=== PATIENT | male | born 1945 | race Caucasian/White ===

== ENCOUNTER 2017-11-20 10:41 | Emergency (ER) | payer MEDICARE ==
--- NOTE | 2017-11-20 10:59 | ERPHSYRPT ---
- History of Present Illness Time Seen by Provider: 11/20/17 10:52 Historian: patient Exam Limitations: no limitations Patient Subjective Stated Complaint: pt states for the past 2 days he has had hiccups and right side chest pain. Triage Nursing Assessment: pt pink, warm, dry. radial pulses strong. lung sounds clear and equal. pt afebrile. pt has continuous hiccups. Physician History: 72-year-old white male arrives with complaint of left-sided chest pain (left upper chest) for 2 days. he describes this as a pressure states it is been sharp and pressure associated with shortness of breath no nausea no vomiting patient has had hiccups for 2 days as well. Past medical history includes Alzheimer's dementia, hypercholesterolemia, high blood pressure, hypothyroidism, degenerative disc disease, GERD, hernia, skin cancer, tremor, arthritis, bronchitis, diverticulitis patient apparently has had an aneurysm there is kidney Past surgical history includes feet and bone spur surgery, skin cancer excision , cholecystectomy, stent in the left leg Social history patient former smoker Timing/Duration: day(s) (2) Activities at Onset: none Quality: pressure, sharpness Location: other (left upper anterior chest) Chest Pain Radiation: no radiation Severity of Pain-Max: moderate Severity of Pain-Current: moderate Modifying Factors: Improves With: nothing Associated Symptoms: shortness of breath, other (hiccups for 2 days), No nausea , No vomiting, No palpitations, No heartburn, No abdominal pain, No cough, No hurts to breathe, No diaphoresis, No chills, No fever, No fatigue, No weakness, No swelling/lump in chest, No syncope, No rash, No headache, No dizziness, No edema, No back pain Prior Chest Pain/Cardiac Workup: no prior chest pain Nitro Today/Relief: no nitro taken today Aspirin Treatment Today: 81 mg x 1 (81 mg at home), 81 mg x 3 (provided by ER) Allergies/Adverse Reactions: No Known Drug Allergies Allergy (Verified 11/20/17 10:48) Home Medications: Lisinopril 20 mg PO DAILY 03/24/12 [History] Levothyroxine Sodium 75 Mcg [Synthroid 75 Mcg] 75 mcg PO DAILY 08/30/14 [ History] PANTOPRAZOLE 40 mg Tablet [Protonix 40MG Tablet] 40 mg PO DAILY 03/21/16 [ History] Clopidogrel Bisulfate 75 mg [PLAVIX 75 MG Tablet] 75 mg PO DAILY 12/17/16 [History] Amlodipine Besylate 10 mg [Norvasc 10 MG] 10 mg PO DAILY 11/20/17 [History] Aspirin 81 mg PO DAILY 11/20/17 [History] Cilostazol 75 mg PO BID 11/20/17 [History] Donepezil HCl [Aricept] 5 mg PO DAILY 11/20/17 [History] Memantine HCl [Namenda Xr] 28 mg PO DAILY 11/20/17 [History] Multivitamin [Multivitamins] 1 each PO DAILY 11/20/17 [History] Pravastatin Sodium 40 mg PO DAILY 11/20/17 [History] Propranolol HCl [Inderal LA] 80 mg PO DAILY 11/20/17 [History] Tamsulosin HCl 0.4 mg [Flomax 0.4 MG] 0.4 mg PO DAILY 11/20/17 [History] Hx Tetanus, Diphtheria Vaccination/Date Given: Yes (up to date) Hx Influenza Vaccination/Date Given: Yes Hx Pneumococcal Vaccination/Date Given: Yes Immunizations Up to Date: Yes - Review of Systems Constitutional: No Fever, No Chills Eyes: No Symptoms Ears, Nose, & Throat: No Symptoms Respiratory: Dyspnea, No Cough, No Cyanosis, No Dyspnea on Exertion (GUPTA), No Stridor, No Wheezing Cardiac: Chest Pain, No Edema, No Palpitations, No Syncope, No Orthopnea Abdominal/Gastrointestinal: Other (hiccups x 2 days), No Abdominal Pain, No Nausea, No Vomiting, No Diarrhea, No Constipation, No Hematemesis, No Hematochezia, No Melena, No Dysphagia, No Appetite Changes Genitourinary Symptoms: No Dysuria Musculoskeletal: No Back Pain, No Neck Pain Skin: No Rash Neurological: No Dizziness, No Focal Weakness, No Sensory Changes Psychological: No Symptoms Endocrine: No Symptoms All Other Systems: Reviewed and Negative - Past Medical History Pertinent Past Medical History: Yes Neurological History: Alzheimer's Disease, Dementia ENT History: No Pertinent History Cardiac History: High Cholesterol, Hypertension Respiratory History: No Pertinent History Endocrine Medical History: Hypothyroidism Musculoskeletal History: Degenerative Disk Disease GI Medical History: Diverticulitis, GERD, Hernia History: No Pertinent History Psycho-Social History: No Pertinent History Male Reproductive Disorders: No Pertinent History Other Medical History: skin cancer and tremor spouse states has a hiatel hernia and an aneurysm near kidney - Past Surgical History Past Surgical History: Yes Cardiac: No Pertinent History, Vascular Surgery Respiratory: No Pertinent History Gastrointestinal: Cholecystectomy, Other Genitourinary: No Pertinent History Musculoskeletal: Orthopedic Surgery Male Surgical History: No Pertinent History Other Surgical History: EGD february 2016 scheduled for jeffery april 02 2016. bilateral foot surgery for bone spurs - Social History Smoking Status: Former smoker Exposure to second hand smoke: No Drug Use: none Patient Lives Alone: No - Nursing Vital Signs Nursing Vital Signs: Initial Vital Signs Temperature 99.0 F 11/20/17 10:42 Pulse Rate 61 11/20/17 10:42 Respiratory Rate 20 11/20/17 10:42 Blood Pressure 130/71 11/20/17 10:42 O2 Sat by Pulse Oximetry 97 11/20/17 10:42 Pain Scale Pain Intensity 3 - Physical Exam General Appearance: mild distress, other (constantly hiccuping) Eye Exam: PERRL/EOMI, eyes nml inspection Ears, Nose, Throat Exam: normal ENT inspection, moist mucous membranes Neck Exam: normal inspection, non-tender, supple, full range of motion Respiratory Exam: normal breath sounds, lungs clear, No respiratory distress Cardiovascular Exam: regular rate/rhythm, normal heart sounds Gastrointestinal/Abdomen Exam: soft, No tenderness, No mass Back Exam: normal inspection, No CVA tenderness, No vertebral tenderness Extremity Exam: normal inspection, normal range of motion Neurologic Exam: alert, oriented x 3, cooperative, normal mood/affect, sensation nml, No motor deficits Skin Exam: normal color, warm, dry SpO2 Interpretation: normal (97%) SpO2: 97 Oxygen Delivery: Room Air - Course Nursing assessment & vital signs reviewed: Yes EKG Interpreted by Me: RATE (63 bpm), Sinus Rhythm, NORMAL AXIS, Other (EKG: Normal sinus rhythm, 63 beats for minute, normal axis, no acute ST or T wave changes as March 21, 2016) - Radiology Exams Chest X-ray Interpretation: Interpreted by me, Other (no acute disease process) Ordered Tests: Active Orders 24 hr Category Date Time Status Pig Machine Operator Helper STAT Care 11/20/17 10:52 Active EKG-ER Only STAT Care 11/20/17 10:52 Active IV Insertion STAT Care 11/20/17 10:52 Active CHEST 1 VIEW (PORTABLE) Stat Exams 11/20/17 10:52 Taken CBC W DIFF Stat Lab 11/20/17 10:50 Completed CMP Stat Lab 11/20/17 10:50 Results NT PRO BNP Stat Lab 11/20/17 10:50 Results TROPONIN Q3H Lab 11/20/17 10:50 Completed TROPONIN Q3H Lab 11/20/17 14:00 Ordered TROPONIN Q3H Lab 11/20/17 17:00 Ordered TROPONIN Q3H Lab 11/20/17 20:00 Ordered TROPONIN Q3H Lab 11/20/17 23:00 Ordered Medication Summary Generic Name Dose Route Start Last Admin Trade Name Freq PRN Reason Stop Dose Admin Chlorpromazine HCl 25 mg/ 101 mls @ 100 mls/hr 11/20/17 11:17 11/20/17 11:29 Sodium Chloride IV 11/20/17 12:17 100 mls/hr STAT ONE Administration Discontinued Medications Generic Name Dose Route Start Last Admin Trade Name Freq PRN Reason Stop Dose Admin Aspirin 243 mg 11/20/17 10:52 11/20/17 11:03 Baby Aspirin 81 Mg Chew PO 11/20/17 10:53 243 mg STAT ONE Administration Aspirin Confirm 11/20/17 11:00 Baby Aspirin 81 Mg Chew Administered 11/20/17 11:01 Dose 243 mg .ROUTE .STK-MED ONE Lab/Rad Data: Laboratory Result Diagrams 11/20/17 10:50 11/20/17 10:50 Laboratory Results 11/20/17 11/20/17 11/20/17 Range/Units 10:50 10:50 10:50 WBC 7.5 (4.0-10.5) K/mm3 RBC 4.33 (4.1-5.6) M/mm3 Hgb 13.2 (12.5-18.0) gm/dl Hct 40.2 L (42-50) % MCV 92.8 (78-100) fl MCH 30.5 (26-32) pg MCHC 32.8 (32-36) g/dl RDW 13.2 (11.5-14.0) % Plt Count 157 (150-450) K/mm3 MPV 10.5 H (6-9.5) fl Gran % 62.5 (36.0-66.0) % Lymphocytes % 14.1 L (24.0-44.0) % Monocytes % 20.0 H (0.0-12.0) % Eosinophils % 3.1 (0.00-5.0) % Basophils % 0.3 (0.0-0.4) % Basophils # 0.02 (0-0.4) Sodium 138 (136-145) mEq/L Potassium 4.4 (3.5-5.1) mEq/L Chloride 104 (98-107) mEq/L Carbon Dioxide 28.8 (21-32) mEq/L Anion Gap 9.9 (5-15) MEQ/L BUN Pending Creatinine 1.15 (0.55-1.30) mg/dl Estimated GFR > 60 ML/MIN Glucose 110 (70-110) MG/DL Calcium 9.1 (8.5-10.1) mg/dL Total Bilirubin 0.40 (0.2-1.0) mg/dL AST 21 (15-37) U/L ALT 21 (12-78) U/L Alkaline Phosphatase 64 (46-116) U/L Troponin I < 0.017 (0.000-0.056) ng/ml NT-Pro-B Natriuret Pep 148 H (0-125) pg/ml Serum Total Protein 7.2 (6.4-8.2) gm/dL Albumin 3.7 (3.4-5.0) g/dL - Progress Progress: improved Air Movement: fair Progress Note: 11/20/17 11:20 This is a 72-year-old white male with history of Alzheimer's dementia hypercholesterolemia high blood pressure hypothyroidism degenerative disc disease peripheral vascular disease He arrives with complaint of pain in the left upper anterior chest described as a pressure his states he was complaining of it being sharp and also some shortness of breath as well. Symptoms for 2 days He has also been having hiccups for 2 days On arrival patient has a frequent headache Which have been constant. Patient's EKG no acute changes as compared to March 21, 2016 sinus rhythm [address] or T wave changes Patient's vitals are stable. I've discussed with the pharmacist treatment for the patient's persistent hiccups. Will give Thorazine 25 mg IV piggyback this may be repeated if necessary. We have reviewed the patient's a potential interactions with his home medications. 11/20/17 12:02 Patient is feeling better nut picker a swelling and actually appear to be resolving. Patient's states that he did have some continuing pain earlier not pain at this time in his left upper anterior chest. Will discuss with physician fashion director party plan sales for Dr. Marc 11/20/17 12:[address] Hancock who is fashion director party plan sales for Dr. Marc discussed the case with her Will plan to call transfer center to [facility] Plan to transfer to [facility] for chest pain rule out. 11/20/17 12:12 I discussed the patient's case with Dr. Hines ER physician at [facility] he accepted patient for transfer. Will transfer patient. - Departure Time of Disposition: 12:12 Departure Disposition: Transfer ([facility]) Clinical Impression: Chest pain Qualifiers: Chest pain type: unspecified Qualified Code(s): R07.9 - Chest pain, unspecified Condition: Fair Critical Care Time: No Referrals: KARYN MARC MD [Primary Care Provider] -
[2017-11-20] MEDS ORDERED: BABY ASPIRIN 81 MG CHEW ONE (11:00)
[2017-11-20] MEDS: BABY ASPIRIN 81 MG CHEW PO ONE (11:03)
[2017-11-20 11:12] LABS: BASOPHIL % 0.3 % (0.0-0.4); Basophil (Absolute #) 0.02 (0-0.4); Eosinophil % 3.1 % (0.00-5.0); Eosinophil (Absolute #) 0.23 (0-0.5); Granulocyte Absolute (ANC) 4.67 (1.4-6.9); Granulocytes % 62.5 % (36.0-66.0); Hematocrit 40.2 % (42-50); Hemoglobin 13.2 gm/dl (12.5-18.0); Lymphocyte (Absolute #) 1.05 (1.0-4.6); Lymphocytes % 14.1 % (24.0-44.0); Mean Cell Volume 92.8 fl (78-100); Mean Corpuscular Hemoglobin 30.5 pg (26-32); Mean Corpuscular Hgb Concent. 32.8 g/dl (32-36); Mean Platelet Volume 10.5 fl (6-9.5); Monocyte (Absolute #) 1.49 (0.0-1.3); Platelet Count 157 K/mm3 (150-450); Red Blood Count 4.33 M/mm3 (4.1-5.6); Red Cell Distribution Width 13.2 % (11.5-14.0); White Blood Count 7.5 K/mm3 (4.0-10.5)
[2017-11-20] MEDS: THORAZINE IV ONE (11:29)
[2017-11-20] MEDS: SODIUM CHLORIDE 0.9% IV ONE (11:29)
[2017-11-20 11:41] LABS: ALBUMIN 3.7 g/dL (3.4-5.0); ALKALINE PHOSPHATASE 64 U/L (46-116); ANION GAP 9.9 MEQ/L (5-15); CHLORIDE 104 mEq/L (98-107); Calcium 9.1 mg/dL (8.5-10.1); Carbon Dioxide 28.8 mEq/L (21-32); Creatinine 1 1.15 mg/dl (0.55-1.30); EST GLOMERULAR FILTRATION RATE > 60 ML/MIN; Glucose 110 MG/DL (70-110); NT PRO BNP 148 pg/ml (0-125); Potassium 4.4 mEq/L (3.5-5.1); SGOT/AST 21 U/L (15-37); SGPT/ALT 21 U/L (12-78); SODIUM 138 mEq/L (136-145); Total Protein 7.2 gm/dL (6.4-8.2)
[2017-11-20 12:08] LABS: BLOOD UREA NITROGEN 8 mg/dL (9-20)
[2017-11-20 12:57] VITALS: BP 107/62; PULSE 78; O2SAT 98
--- NOTE | 2017-11-20 20:23 | XRAY ---
Indication: Chest pain. Comparison: December 17, 2016. AP chest less inflated today accentuating the cardiopulmonary structures. No focal infiltrate, consolidation, or large effusion. Heart is not enlarged. Bony thorax intact again with mild degenerative changes. Impression: Nonacute underinflated chest.
== END 2017-11-20 12:57 | disposition short-term general hospital (02) ==
LOC: ED 10:41
DX: R07.9 Chest pain, unspecified (principal); G30.9 Alzheimer's disease, unspecified; F02.80 Dementia in other diseases classified elsewhere, unspecified severity, without behavioral disturbance, psychotic disturbance, mood disturbance, and anxiety; I10 Essential (primary) hypertension; E03.9 Hypothyroidism, unspecified; K21.9 Gastro-esophageal reflux disease without esophagitis; Z85.828 Personal history of other malignant neoplasm of skin; E78.00 Pure hypercholesterolemia, unspecified; M19.90 Unspecified osteoarthritis, unspecified site; Z87.891 Personal history of nicotine dependence; Z79.899 Other long term (current) drug therapy
CPT/HCPCS: 36000; 36415; 71045; 80053; 83880; 84484; 85025; 93005; 93041; 96365; 99285; J3230; A9270-GY

== ENCOUNTER 2019-02-15 14:16 | Observation (INO) | payer MEDICARE ==
[2019-02-15] MEDS ORDERED: Sodium Chloride 0.9% 1000 ML 1,000 ML IV STA (14:58)
[2019-02-15] MEDS ORDERED: Sodium Chloride 0.9% 1000 ML 1,000 ML IV SCH (15:00)
[2019-02-15 15:01] LABS: BASOPHIL % 0.6 % (0.0-0.4); Basophil (Absolute #) 0.05 (0-0.4); Eosinophil % 8.2 % (0.00-5.0); Eosinophil (Absolute #) 0.66 (0-0.5); Granulocyte Absolute (ANC) 5.21 (1.4-6.9); Granulocytes % 64.6 % (36.0-66.0); Hematocrit 39.8 % (42-50); Lymphocyte (Absolute #) 1.27 (1.0-4.6); Lymphocytes % 15.8 % (24.0-44.0); Mean Cell Volume 90.2 fl (78-100); Mean Corpuscular Hemoglobin 29.5 pg (26-32); Mean Corpuscular Hgb Concent. 32.7 g/dl (32-36); Mean Platelet Volume 10.6 fl (6-9.5); Monocyte (Absolute #) 0.87 (0.0-1.3); Monocytes % 10.8 % (0.0-12.0); Platelet Count 198 K/mm3 (150-450); Red Blood Count 4.41 M/mm3 (4.1-5.6); Red Cell Distribution Width 15.7 % (11.5-14.0); White Blood Count 8.1 K/mm3 (4.0-10.5)
[2019-02-15 15:08] LABS: INR 1.16 (0.8-3.0); PROTIME 13.5 SECONDS (8.83-12.87)
[2019-02-15] MEDS ORDERED: Sodium Chloride 0.9% 1000 ML 1,000 ML ONE (15:20)
[2019-02-15 15:22] LABS: ALBUMIN 3.8 g/dL (3.5-5.0); ANION GAP 16.1 MEQ/L (5-15); BILIRUBIN,TOTAL 0.4 mg/dL (0.2-1.3); Calcium 9.5 mg/dL (8.4-10.2); Creatinine 1 1.28 mg/dL (0.66-1.25); Potassium 4.3 mmol/L (3.5-5.1); Total Protein 7.1 g/dL (6.3-8.2)
[2019-02-15 16:15] LABS: Appearance SLIGHTLY CLOUDY (CLEAR); Bacteria RARE /HPF (NEGATIVE); Bilirubin NEGATIVE (NEGATIVE); Blood NEGATIVE Ery/ul (0-5); Glucose NEGATIVE (NEGATIVE); Ketones TRACE (NEGATIVE); Leukocyte Esterase TRACE (NEGATIVE); Mucus SLIGHT /HPF (NEGATIVE); Nitrite NEGATIVE (NEGATIVE); Protein,Urine Dip 30 (Negative); RBC 0-2 /HPF (0-2); Urobilinogen 2 mg/dL (0-1)
--- NOTE | 2019-02-15 16:18 | XRAY ---
Indication: Dyspnea. Comparison: November 20, 2017. Portable apical lordotic chest remains slightly underinflated with right hemidiaphragm elevation. Remaining lungs clear. Heart is not enlarged with interval CABG surgery. Bony thorax intact again with mild degenerative changes. Impression: Nonacute chest with chronic features.
--- NOTE | 2019-02-15 17:06 | ERPHSYRPT ---
- History of Present Illness Time Seen by Provider: 02/15/19 14:45 Source: patient Exam Limitations: clinical condition Patient Subjective Stated Complaint: arrived per WC with concern of low B/P while doing his rehab. he is in phase 3. was not being heart monitored while exercising.. states became very hot and tired before he was able to finish his exercise plan today.. the staff ssaid he had a decreasingB/P . Triage Nursing Assessment: arrived from cardiac rehab with concern of low b/p while exercising. on arrive no c/o at this time.. denies CP or any c/o at this time.. did have a quadruple bypass in July by Dr Phelps. states his b/p was progressively low while in rehab. [place] hot while doing his rehab and tired. did not finish his exercises since feeling hot and tired. Physician History: PATIENT WITH A HISTORY OF HYPERTENSION, HYPOTHYROIDISM, CORONARY ARTERY DISEASE POST CORONARY ARTERY BYPASS 07/2018 WHILE DOING CARDIAC REHAB EXCERCISES WAS FOUND HYPOTENSIVE. PATIENT DENIES DIAPHORETIC, DYSPNEA, CHEST PAIN., SLURRED SPEECH, FOCAL NUMBNESS, TINGLING OR WEAKNESS IN EXTREMITIES. Timing/Duration: today Modifying Factors: Improves With: other (DENIES COMPLAINTS) Associated Symptoms: denies symptoms Allergies/Adverse Reactions: No Known Drug Allergies Allergy (Verified 02/15/19 14:51) Home Medications: Lisinopril 20 mg PO DAILY 03/24/12 [History] Levothyroxine Sodium 75 Mcg [Synthroid 75 Mcg] 75 mcg PO DAILY 08/30/14 [ History] Clopidogrel Bisulfate 75 mg [PLAVIX 75 MG Tablet] 75 mg PO DAILY 12/17/16 [History] Amlodipine Besylate 10 mg [Norvasc 10 MG] 10 mg PO DAILY 11/20/17 [History] Aspirin 81 mg PO DAILY 11/20/17 [History] Cilostazol 75 mg PO BID 11/20/17 [History] Donepezil HCl [Aricept] 10 mg PO BID 11/20/17 [History] Memantine HCl [Namenda Xr] 10 mg PO BID 11/20/17 [History] Multivitamin [Multivitamins] 1 each PO DAILY 11/20/17 [History] Pravastatin Sodium 40 mg PO DAILY 11/20/17 [History] Tamsulosin HCl 0.4 mg [Flomax 0.4 MG] 0.4 mg PO DAILY 11/20/17 [History] Hx Tetanus, Diphtheria Vaccination/Date Given: Yes (up to date) Hx Influenza Vaccination/Date Given: Yes Hx Pneumococcal Vaccination/Date Given: Yes Immunizations Up to Date: Yes - Review of Systems Constitutional: No Fever, No Chills Eyes: No Symptoms Ears, Nose, & Throat: No Symptoms, Throat Swelling Respiratory: No Cough, No Dyspnea Cardiac: No Symptoms, No Chest Pain, No Edema, No Syncope Abdominal/Gastrointestinal: No Symptoms, No Abdominal Pain, No Nausea, No Vomiting, No Diarrhea Genitourinary Symptoms: No Symptoms, No Dysuria Musculoskeletal: No Symptoms, No Back Pain, No Neck Pain Skin: No Symptoms, No Rash Neurological: No Dizziness, No Focal Weakness, No Sensory Changes Psychological: No Symptoms Endocrine: No Symptoms All Other Systems: Reviewed and Negative - Past Medical History Pertinent Past Medical History: Yes Neurological History: Alzheimer's Disease, Dementia ENT History: No Pertinent History Cardiac History: High Cholesterol, Hypertension Respiratory History: No Pertinent History Endocrine Medical History: Hypothyroidism Musculoskeletal History: Degenerative Disk Disease GI Medical History: Diverticulitis, GERD, Hernia History: No Pertinent History Psycho-Social History: No Pertinent History Male Reproductive Disorders: No Pertinent History Other Medical History: skin cancer and tremor spouse states has a hiatel hernia and an aneurysm near kidney. quadruple bypass in July - Past Surgical History Past Surgical History: Yes Cardiac: No Pertinent History, Vascular Surgery Respiratory: No Pertinent History Gastrointestinal: Cholecystectomy, Other Genitourinary: No Pertinent History Musculoskeletal: Orthopedic Surgery Male Surgical History: No Pertinent History Other Surgical History: EGD february 2016 scheduled for jeffery april 02 2016. bilateral foot surgery for bone spurs. quadruple bypass in July 2018 - Social History Smoking Status: Never smoker Exposure to second hand smoke: No Drug Use: none Patient Lives Alone: No - Nursing Vital Signs Nursing Vital Signs: Initial Vital Signs Temperature 97.8 F 02/15/19 14:30 Pulse Rate 60 02/15/19 14:30 Blood Pressure 101/52 02/15/19 14:30 O2 Sat by Pulse Oximetry 95 02/15/19 14:30 Pain Scale Pain Intensity 0 - Physical Exam General Appearance: no apparent distress, alert Eye Exam: PERRL/EOMI, eyes nml inspection Ears, Nose, Throat Exam: normal ENT inspection, TMs normal, pharynx normal, moist mucous membranes Neck Exam: normal inspection, non-tender, supple, full range of motion Respiratory Exam: normal breath sounds, lungs clear, No respiratory distress Cardiovascular Exam: regular rate/rhythm, normal heart sounds, normal peripheral pulses Gastrointestinal/Abdomen Exam: soft, normal bowel sounds, No tenderness, No mass Back Exam: normal inspection, normal range of motion, No CVA tenderness, No vertebral tenderness Extremity Exam: normal inspection, normal range of motion, pelvis stable Neurologic Exam: alert, oriented x 3, cooperative, normal mood/affect, nml cerebellar function, nml station & gait, sensation nml, No motor deficits Skin Exam: normal color, warm, dry, No rash Lymphatic Exam: No adenopathy SpO2 Interpretation: normal SpO2: 97 - Course EKG Interpreted by Me: RATE, Sinus Rhythm, NORMAL AXIS - Radiology Exams Chest X-ray Interpretation: Interpreted by me, Negative, No Infiltrates Ordered Tests: Active Orders 24 hr Category Date Time Status Small Engine Trainer STAT Care 02/15/19 14:53 Active EKG-ER Only STAT Care 02/15/19 14:53 Active IV Insertion STAT Care 02/15/19 14:53 Active Orthostatic Vital Signs STAT Care 02/15/19 15:00 Active CHEST 1 VIEW (PORTABLE) Stat Exams 02/15/19 15:25 Completed CBC W DIFF Stat Lab 02/15/19 14:45 Completed CMP Stat Lab 02/15/19 14:45 Completed CULTURE,URINE Stat Lab 02/15/19 16:10 Received MAGNESIUM Stat Lab 02/15/19 14:45 Completed NT PRO BNP Stat Lab 02/15/19 14:45 Completed PROTIME WITH INR Stat Lab 02/15/19 14:45 Completed TROPONIN Q3H Lab 02/15/19 14:45 Completed TROPONIN Q3H Lab 02/15/19 18:00 Ordered TROPONIN Q3H Lab 02/15/19 21:00 Ordered TROPONIN Q3H Lab 02/16/19 00:00 Ordered TROPONIN Q3H Lab 02/16/19 03:00 Ordered UA W/RFX UR CULTURE Stat Lab 02/15/19 16:10 Completed Medication Summary Discontinued Medications Generic Name Dose Route Start Last Admin Trade Name Freq PRN Reason Stop Dose Admin Sodium Chloride 1,000 mls @ 200 mls/hr 02/15/19 15:00 Sodium Chloride 0.9% 1000 Ml IV 03/17/19 14:59 .Q5H ALICIA Sodium Chloride 1,000 mls @ 500 mls/hr 02/15/19 14:58 02/15/19 15:24 Sodium Chloride 0.9% 1000 Ml IV 02/15/19 16:57 500 mls/hr .Q2H STA Administration Sodium Chloride Confirm 02/15/19 15:20 Sodium Chloride 0.9% 1000 Ml Administered 02/15/19 15:21 Dose 1,000 mls @ ud .ROUTE .K-MED ONE Lab/Rad Data: Laboratory Result Diagrams 02/15/19 14:45 02/15/19 14:45 Laboratory Results 02/15/19 02/15/19 02/15/19 Range/Units 16:10 14:45 14:45 WBC (4.0-10.5) K/mm3 RBC (4.1-5.6) M/mm3 Hgb (12.5-18.0) gm/dl Hct (42-50) % MCV (78-100) fl MCH (26-32) pg MCHC (32-36) g/dl RDW (11.5-14.0) % Plt Count (150-450) K/mm3 MPV (6-9.5) fl Gran % (36.0-66.0) % Eos # (Auto) (0-0.5) Absolute Lymphs (auto) (1.0-4.6) Absolute Monos (auto) (0.0-1.3) Lymphocytes % (24.0-44.0) % Monocytes % (0.0-12.0) % Eosinophils % (0.00-5.0) % Basophils % (0.0-0.4) % Absolute Granulocytes (1.4-6.9) Basophils # (0-0.4) PT (8.83-12.87) SECONDS INR (0.8-3.0) Sodium (137-145) mmol/L Potassium (3.5-5.1) mmol/L Chloride (98-107) mmol/L Carbon Dioxide (22-30) mmol/L Anion Gap (5-15) MEQ/L BUN (9-20) mg/dL Creatinine (0.66-1.25) mg/dL Estimated GFR ML/MIN Glucose (74-106) mg/dL Calcium (8.4-10.2) mg/dL Magnesium 2.1 (1.6-2.3) mg/dL Total Bilirubin (0.2-1.3) mg/dL AST (17-59) U/L ALT (0-50) U/L Alkaline Phosphatase (38-126) U/L Troponin I < 0.012 (0.000-0.034) ng/mL NT-Pro-B Natriuret Pep (0-1800) pg/mL Serum Total Protein (6.3-8.2) g/dL Albumin (3.5-5.0) g/dL Urine Color DRAKE (YELLOW) Urine Appearance SLIGHTLY CLOUDY (CLEAR) Urine pH 5.0 (5-6) Ur Specific [address] 1.020 (1.005-1.025) Urine Protein 30 (Negative) Urine Ketones TRACE (NEGATIVE) Urine Blood NEGATIVE (0-5) Michael/ul Urine Nitrite NEGATIVE (NEGATIVE) Urine Bilirubin NEGATIVE (NEGATIVE) Urine Urobilinogen 2 (0-1) mg/dL Ur Leukocyte Esterase TRACE (NEGATIVE) Urine WBC (Auto) 6-10 (0-5) /HPF Urine RBC (Auto) 0-2 (0-2) /HPF U Hyaline Cast (Auto) 6-10 (0-2) /LPF U Epithel Cells (Auto) NONE (FEW) /HPF Urine Bacteria (Auto) RARE (NEGATIVE) /HPF Urine Mucus (Auto) SLIGHT (NEGATIVE) /HPF Urine Culture Reflexed YES (NO) Urine Glucose NEGATIVE (NEGATIVE) mg/dL 02/15/19 02/15/19 02/15/19 Range/Units 14:45 14:45 14:45 WBC 8.1 (4.0-10.5) K/mm3 RBC 4.41 (4.1-5.6) M/mm3 Hgb 13.0 (12.5-18.0) gm/dl Hct 39.8 L (42-50) % MCV 90.2 (78-100) fl MCH 29.5 (26-32) pg MCHC 32.7 (32-36) g/dl RDW 15.7 H (11.5-14.0) % Plt Count 198 (150-450) K/mm3 MPV 10.6 H (6-9.5) fl Gran % 64.6 (36.0-66.0) % Eos # (Auto) 0.66 H (0-0.5) Absolute Lymphs (auto) 1.27 (1.0-4.6) Absolute Monos (auto) 0.87 (0.0-1.3) Lymphocytes % 15.8 L (24.0-44.0) % Monocytes % 10.8 (0.0-12.0) % Eosinophils % 8.2 H (0.00-5.0) % Basophils % 0.6 (0.0-0.4) % Absolute Granulocytes 5.21 (1.4-6.9) Basophils # 0.05 (0-0.4) PT 13.5 H (8.83-12.87) SECONDS INR 1.16 (0.8-3.0) Sodium 141 (137-145) mmol/L Potassium 4.3 (3.5-5.1) mmol/L Chloride 105 (98-107) mmol/L Carbon Dioxide 23 (22-30) mmol/L Anion Gap 16.1 H (5-15) MEQ/L BUN 14 (9-20) mg/dL Creatinine 1.28 H (0.66-1.25) mg/dL Estimated GFR 58.2 ML/MIN Glucose 94 (74-106) mg/dL Calcium 9.5 (8.4-10.2) mg/dL Magnesium (1.6-2.3) mg/dL Total Bilirubin 0.40 (0.2-1.3) mg/dL AST 24 (17-59) U/L ALT 20 (0-50) U/L Alkaline Phosphatase 90 (38-126) U/L Troponin I (0.000-0.034) ng/mL NT-Pro-B Natriuret Pep 340 (0-1800) pg/mL Serum Total Protein 7.1 (6.3-8.2) g/dL Albumin 3.8 (3.5-5.0) g/dL Urine Color (YELLOW) Urine Appearance (CLEAR) Urine pH (5-6) Ur Specific [address] (1.005-1.025) Urine Protein (Negative) Urine Ketones (NEGATIVE) Urine Blood (0-5) Michael/ul Urine Nitrite (NEGATIVE) Urine Bilirubin (NEGATIVE) Urine Urobilinogen (0-1) mg/dL Ur Leukocyte Esterase (NEGATIVE) Urine WBC (Auto) (0-5) /HPF Urine RBC (Auto) (0-2) /HPF U Hyaline Cast (Auto) (0-2) /LPF U Epithel Cells (Auto) (FEW) /HPF Urine Bacteria (Auto) (NEGATIVE) /HPF Urine Mucus (Auto) (NEGATIVE) /HPF Urine Culture Reflexed (NO) Urine Glucose (NEGATIVE) mg/dL - Progress Progress Note: 02/15/19 17:08 IV NORMAL SALINE 200ML/HR Discussed with : Maynor (DISCUSSED WITH DR MARC AT 1645 FOR OBSERVATION) - Departure Departure Disposition: Observation Clinical Impression: HYPOTENSION Condition: Stable Critical Care Time: No Referrals: KARYN MARC MD [Primary Care Provider] -
[2019-02-15] MEDS ORDERED: TYLENOL 325 MG PO PRN (17:10)
[2019-02-15] MEDS ORDERED: Zofran 4 MG/2 ML VIAL IV PRN (17:10)
[2019-02-15] MEDS: Sodium Chloride 0.9% 1000 ML 1,000 ML IV SCH (18:50)
[2019-02-15] MEDS ORDERED: Toprol-Xl 25MG Tablets PO SCH (22:00)
[2019-02-15] MEDS: Namenda 5 MG PO SCH (22:17)
[2019-02-15] MEDS: Aricept 10 MG PO SCH (22:17)
[2019-02-16] MEDS ORDERED: Nitrostat 0.4 MG (ED) SL PRN (07:30)
[2019-02-16] MEDS ORDERED: CILOSTAZOL PO SCH (10:00)
[2019-02-16] MEDS ORDERED: NORVASC 5 MG PO SCH (10:00)
[2019-02-16] MEDS ORDERED: Protonix 40MG Tablet PO SCH (10:00)
[2019-02-16] MEDS ORDERED: Toprol Xl 50 MG PO SCH ×2 (10:00)
[2019-02-16] MEDS ORDERED: Zestril 10 MG PO SCH (10:00)
[2019-02-16] MEDS ORDERED: Flomax 0.4 MG PO SCH ×2 (10:00→22:00)
[2019-02-16] MEDS ORDERED: Lopressor 25MG Tab PO SCH (10:00)
[2019-02-16] MEDS: Zestril 20 MG PO SCH (10:56)
[2019-02-16] MEDS: Aricept 10 MG PO SCH ×2 (10:58→21:44)
[2019-02-16] MEDS: Colace 100 MG PO SCH ×2 (10:58→21:44)
[2019-02-16] MEDS: SYNTHROID 75 MCG PO SCH (10:59)
[2019-02-16] MEDS: Namenda 5 MG PO SCH ×2 (11:00→21:45)
[2019-02-16] MEDS: ECOTRIN 81 MG PO SCH (11:00)
[2019-02-16] MEDS: PLAVIX 75 MG Tablet PO SCH (11:00)
[2019-02-16] MEDS: Pletal 100 MG PO SCH ×2 (16:28→22:03)
[2019-02-16] MEDS: Sodium Chloride 0.9% 1000 ML 1,000 ML IV SCH (16:50)
--- NOTE | 2019-02-16 17:10 | PCM.HP ---
History of Present Illness - Chief Complaint Chief Complaint: dizziness and low blood pressure History of Present Illness: is a 73 year old male came to ER with blood pressure. - Review of Systems Constitutional: No Fever, No Chills Eyes: No Symptoms Ears, Nose, & Throat: No Symptoms Respiratory: No Cough, No Short Of Breath Cardiac: No Chest Pain, No Edema, No Syncope Abdominal/Gastrointestinal: No Abdominal Pain, No Nausea, No Vomiting, No Diarrhea Genitourinary Symptoms: No Dysuria Musculoskeletal: No Back Pain, No Neck Pain Skin: No Rash Neurological: No Dizziness, No Focal Weakness, No Sensory Changes Psychological: No Symptoms Endocrine: No Symptoms Hematologic/Lymphatic: No Symptoms Immunological/Allergic: No Symptoms Medications & Allergies Home Medications: Home Medication List Lisinopril 20 mg PO DAILY 03/24/12 [History Confirmed 02/15/19] Levothyroxine Sodium 75 Mcg [Synthroid 75 Mcg] 75 mcg PO DAILY 08/30/14 [ History Confirmed 02/15/19] Clopidogrel Bisulfate 75 mg [PLAVIX 75 MG Tablet] 75 mg PO HS 12/17/16 [ History Confirmed 02/15/19] Amlodipine Besylate 10 mg [Norvasc 10 MG] 10 mg PO DAILY 11/20/17 [History Confirmed 02/15/19] Aspirin 81 mg PO DAILY 11/20/17 [History Confirmed 02/15/19] Cilostazol 75 mg PO BID 11/20/17 [History Confirmed 02/15/19] Donepezil HCl [Aricept] 10 mg PO BID 11/20/17 [History Confirmed 02/15/19] Multivitamin [Multivitamins] 1 each PO HS 11/20/17 [History Confirmed 02/15/19] Pravastatin Sodium 40 mg PO HS 11/20/17 [History Confirmed 02/15/19] Tamsulosin HCl 0.4 mg [Flomax 0.4 MG] 0.4 mg PO HS 11/20/17 [History Confirmed 02/16/19] Docusate Sodium 100 mg [Colace 100 MG] 100 mg PO BID 02/15/19 [History Confirmed 02/15/19] Memantine HCl [Namenda] 10 mg PO BID 02/15/19 [History Confirmed 02/15/19] Nitroglycerin 0.4 mg (Ed) [Nitrostat 0.4 MG (ED)] 0.4 mg SL UD 02/15/19 [ History Confirmed 02/15/19] Quetiapine Fumarate [Seroquel] 25 mg PO HS 02/15/19 [History Confirmed 02/15/19] Metoprolol Tartrate 50 mg [Lopressor 50 MG] 50 mg PO BID 02/16/19 [ History Confirmed 02/16/19] Allergies/Adverse Reactions: Allergies Allergy/AdvReac Type Severity Reaction Status Date / Time No Known Drug Allergies Allergy Verified 02/15/19 14:51 - Past Medical History Past Medical History: Yes Neurological History: Alzheimer's Disease, Dementia ENT History: No Pertinent History Cardiac History: High Cholesterol, Hypertension Respiratory History: No Pertinent History Endocrine Medical History: Hypothyroidism Musculoskelatal History: Degenerative Disk Disease GI Medical History: Diverticulitis, GERD, Hernia History: No Pertinent History Pyscho-Social History: No Pertinent History Male Reproductive Disorders: No Pertinent History Comment: skin cancer and tremor spouse states has a hiatel hernia and 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 bilateral foot surgery for bone spurs. quadruple bypass in July 2018 - Social History Smoking Status: Former smoker Exposure to second hand smoke: No Alcohol: None Drug Use: none - Physical Exam Vital Signs: Vital Signs - 24 hr Temp Pulse Resp BP Pulse Ox 02/16/19 16:00 97.9 F 55 L 26 H 133/63 97 02/16/19 12:00 97.7 F 58 L 20 133/96 97 02/16/19 07:19 97.7 F 72 14 141/68 95 02/16/19 06:48 98 02/16/19 03:48 97.7 F 59 L 16 141/69 95 02/16/19 00:00 98.0 F 65 17 124/66 95 02/15/19 20:00 97.4 F 60 18 135/64 96 02/15/19 18:20 98.1 F 52 L 18 127/59 96 02/15/19 17:33 98.1 F 52 L 18 127/59 96 02/15/19 17:09 97 General Appearance: no apparent distress, alert Neurologic Exam: alert, oriented x 3, cooperative, normal mood/affect, nml cerebellar function, nml station & gait, sensation nml, No motor deficits Eye Exam: PERRL/EOMI, eyes nml inspection Ears, Nose, Throat Exam: normal ENT inspection, TMs normal, pharynx normal, moist mucous membranes Neck Exam: normal inspection, non-tender, supple, full range of motion Respiratory Exam: normal breath sounds, lungs clear, No respiratory distress Cardiovascular Exam: regular rate/rhythm, normal heart sounds, normal peripheral pulses Gastrointestinal/Abdomen Exam: soft, normal bowel sounds, No tenderness, No mass Back Exam: normal inspection, normal range of motion, No CVA tenderness, No vertebral tenderness Extremity Exam: normal inspection, normal range of motion, pelvis stable Skin Exam: normal color, warm, dry, No rash Lymphatic Exam: No adenopathy Results - Labs Lab/Micro Results: Lab Results-Last 24 Hours 02/15/19 02/15/19 02/16/19 Range/Units 18:23 21:18 00:12 Troponin I < 0.012 < 0.012 < 0.012 (0.000-0.034) ng/mL 02/16/19 Range/Units 03:23 Troponin I < 0.012 (0.000-0.034) ng/mL Microbiology 02/15/19 16:10 Urine Culture - Preliminary Urine, Void NO GROWTH TO DATE - Radiology Impressions Radiology Exams & Impressions: Radiology Procedures Category Date Time Status CHEST 1 VIEW (PORTABLE) Stat Exams 02/15/19 15:25 Completed Assessment/Plan (1) Bradyarrhythmia Current Visit: Yes Status: Acute Assessment & Plan: Laboratory Results - last 24 hr 02/15/19 02/15/19 02/16/19 18:23 21:18 00:12 Troponin I < 0.012 < 0.012 < 0.012 02/16/19 03:23 Troponin I < 0.012 Last Vital Signs Temp 97.9 F 02/16/19 16:00 Pulse 55 L 02/16/19 16:00 Resp 26 H 02/16/19 16:00 BP 133/63 02/16/19 16:00 Pulse Ox 97 02/16/19 16:00 Allergies No Known Drug Allergies Allergy (Verified 02/15/19 14:51) Active Medications Acetaminophen (Tylenol 325 Mg) 650 mg PO Q4H PRN PRN PRN Reason: PAIN AND/OR FEVER Stop: 03/17/19 17:09 Amlodipine Besylate (Norvasc 5 Mg) 10 mg PO QAM [facility] Stop: 03/18/19 09:59 Last Admin: 02/16/19 10:59 Dose: 10 mg Aspirin (Ecotrin 81 Mg) 81 mg PO DAILY [facility] Stop: 03/18/19 09:59 Last Admin: 02/16/19 11:00 Dose: 81 mg Carvedilol (Coreg 3.125 Mg) 3.125 mg PO DAILY [facility] Stop: 03/19/19 09:59 Cilostazol (Pletal 100 Mg) 75 mg PO BIDAC [facility] Stop: 03/18/19 16:29 Last Admin: 02/16/19 16:28 Dose: Not Given Clopidogrel Bisulfate (Plavix 75 Mg Tablet) 75 mg PO DAILY [facility] Stop: 03/18/19 09:59 Last Admin: 02/16/19 11:00 Dose: 75 mg Docusate Sodium (Colace 100 Mg) 100 mg PO BID [facility] Stop: 03/18/19 09:59 Last Admin: 02/16/19 10:58 Dose: 100 mg Donepezil HCl (Aricept 10 Mg) 10 mg PO BID [facility] Stop: 03/17/19 21:59 Last Admin: 02/16/19 10:58 Dose: 10 mg Levothyroxine Sodium (Synthroid 75 Mcg) 75 mcg PO QAM [facility] Stop: 03/18/19 09:59 Last Admin: 02/16/19 10:59 Dose: 75 mcg Lisinopril (Zestril 20 Mg) 20 mg PO DAILY [facility] Stop: 03/18/19 09:59 Last Admin: 02/16/19 10:56 Dose: 20 mg Memantine (Namenda 5 Mg) 10 mg PO BID [facility] Stop: 03/17/19 21:59 Last Admin: 02/16/19 11:00 Dose: 10 mg Multivitamins Therapeutic (Theragran Multivitamin) 1 tab PO HS [facility] Stop: 03/18/19 21:59 Nitroglycerin (Nitrostat 0.4 Mg (Ed)) 0.4 mg SL UD PRN Stop: 03/18/19 07:29 Ondansetron HCl (Zofran 4 Mg/2 Ml Vial) 4 mg IV Q6H PRN PRN PRN Reason: NAUSEA/VOMITING Stop: 03/17/19 17:09 Quetiapine Fumarate (Seroquel 25 Mg) 25 mg PO HS [facility] Stop: 03/18/19 21:59 Simvastatin (Zocor 20mg) 40 mg PO [facility] Stop: 03/18/19 21:59 Tamsulosin HCl (Flomax 0.4 Mg) 0.4 mg PO [facility] Stop: 03/18/19 21:59 Intake & Output 02/16/19 02/17/19 11:59 11:59 Intake Total 1592 1200 Output Total 100 400 Balance 1492 800 Weight 81.647 kg Orders 02/16/19 06:48 Pulse Oximetry .continuos 02/16/19 07:30 Nitroglycerin 0.4 mg (Ed) [Nitrostat 0.4 MG (ED)] 0.4 mg UD PRN 02/16/19 10:00 Docusate Sodium 100 mg [Colace 100 MG] 100 mg PO BID 02/16/19 16:30 Cilostazol 100 mg [Pletal 100 MG] 75 mg PO BIDAC 02/16/19 22:00 Multivitamins,Therapeutic Tab* [Theragran Multivitamin] 1 tab PO HS Quetiapine Fumarate 25 mg [Seroquel 25 MG] 25 mg PO HS Simvastatin 20Mg [Zocor 20Mg] 40 mg PO HS Tamsulosin HCl 0.4 mg [Flomax 0.4 MG] 0.4 mg PO HS 02/17/19 10:00 Carvedilol 3.125 mg [Coreg 3.125 MG] 3.125 mg PO DAILY Lab Tests 02/15/19 02/15/19 02/16/19 18:23 21:18 00:12 Troponin I < 0.012 < 0.012 < 0.012 02/16/19 03:23 Troponin I < 0.012 Microbiology 02/15/19 16:10 Urine, Void Urine Culture - Preliminary NO GROWTH TO DATE Code(s): I49.8 - OTHER SPECIFIED CARDIAC ARRHYTHMIAS (2) HTN (hypertension) Current Visit: Yes Status: Acute Qualifiers: Hypertension type: essential hypertension Qualified Code(s): I10 - Essential (primary) hypertension Code(s): I10 - ESSENTIAL (PRIMARY) HYPERTENSION (3) CAD (coronary artery disease) Current Visit: Yes Status: Acute Qualifiers: Coronary Disease-Associated Artery/Lesion type: [place] artery [place] vs. transplanted heart: [place] heart Associated angina: without angina Qualified Code(s): I25.10 - Atherosclerotic heart disease of [place] coronary artery without angina pectoris Code(s): I25.10 - ATHSCL HEART DISEASE OF [place] CORONARY ARTERY W/O ANG PCTRS
[2019-02-16] MEDS ORDERED: NON-FORMULARY ITEM (Pravastatin Sodium [Pravastatin Sodium] 40 MG) PO SCH (22:00)
[2019-02-16] MEDS ORDERED: THERAGRAN MULTIVITAMIN PO SCH (22:00)
[2019-02-16] MEDS ORDERED: Seroquel 25 MG PO SCH (22:00)
[2019-02-16] MEDS ORDERED: NON-FORMULARY ITEM (Multivitamin [Multivitamins] 1 EACH) PO SCH (22:00)
[2019-02-16] MEDS ORDERED: ZOCOR 20MG PO SCH (22:00)
[2019-02-17] MEDS: Pletal 100 MG PO SCH (08:05)
[2019-02-17] MEDS: SYNTHROID 75 MCG PO SCH (09:15)
[2019-02-17] MEDS: Aricept 10 MG PO SCH (09:15)
[2019-02-17] MEDS: Zestril 20 MG PO SCH (09:15)
[2019-02-17] MEDS: PLAVIX 75 MG Tablet PO SCH (09:16)
[2019-02-17] MEDS: Namenda 5 MG PO SCH (09:16)
[2019-02-17] MEDS: ECOTRIN 81 MG PO SCH (09:16)
[2019-02-17] MEDS: Colace 100 MG PO SCH (09:17)
[2019-02-17] MEDS ORDERED: Coreg 3.125 MG PO SCH (10:00)
[2019-02-17 11:45] VITALS: BP 111/70; PULSE 73; O2SAT 97
[2019-02-17] MEDS ORDERED: Nitrostat 0.4 MG Tablet SL PRN (12:44)
--- NOTE | 2019-02-17 13:04 | PCM.DS ---
Discharge Summary Date of Admission: 02/15/19 17:32 Admitting Physician: KARYN MARC Primary Care Provider: KARYN MARC Allergies Allergies No Known Drug Allergies Allergy (Verified 02/15/19 14:51) Hospital Summary - Hospital Course Hospital Course: Last Vital Signs Temp 98.4 F 02/17/19 11:44 Pulse 73 02/17/19 11:44 Resp 12 02/17/19 11:44 BP 111/70 02/17/19 11:44 Pulse Ox 97 02/17/19 11:44 Allergies No Known Drug Allergies Allergy (Verified 02/15/19 14:51) Active Medications Acetaminophen (Tylenol 325 Mg) 650 mg PO Q4H PRN PRN PRN Reason: PAIN AND/OR FEVER Stop: 03/17/19 17:09 Amlodipine Besylate (Norvasc 5 Mg) 10 mg PO HS [facility] Stop: 03/19/19 21:59 Aspirin (Ecotrin 81 Mg) 81 mg PO DAILY [facility] Stop: 03/18/19 09:59 Last Admin: 02/17/19 09:16 Dose: 81 mg Carvedilol (Coreg 3.125 Mg) 3.125 mg PO DAILY [facility] Stop: 03/19/19 09:59 Last Admin: 02/17/19 09:16 Dose: 3.125 mg Cilostazol (Pletal 100 Mg) 75 mg PO BIDAC [facility] Stop: 03/18/19 16:29 Last Admin: 02/17/19 08:05 Dose: 75 mg Clopidogrel Bisulfate (Plavix 75 Mg Tablet) 75 mg PO DAILY [facility] Stop: 03/18/19 09:59 Last Admin: 02/17/19 09:16 Dose: 75 mg Docusate Sodium (Colace 100 Mg) 100 mg PO BID [facility] Stop: 03/18/19 09:59 Last Admin: 02/17/19 09:17 Dose: 100 mg Donepezil HCl (Aricept 10 Mg) 10 mg PO BID [facility] Stop: 03/17/19 21:59 Last Admin: 02/17/19 09:15 Dose: 10 mg Levothyroxine Sodium (Synthroid 75 Mcg) 75 mcg PO QAM [facility] Stop: 03/18/19 09:59 Last Admin: 02/17/19 09:15 Dose: 75 mcg Lisinopril (Zestril 20 Mg) 20 mg PO DAILY [facility] Stop: 03/18/19 09:59 Last Admin: 02/17/19 09:15 Dose: 20 mg Memantine (Namenda 5 Mg) 10 mg PO BID [facility] Stop: 03/17/19 21:59 Last Admin: 02/17/19 09:16 Dose: 10 mg Multivitamins Therapeutic (Theragran Multivitamin) 1 tab PO HS [facility] Stop: 03/18/19 21:59 Last Admin: 02/16/19 21:45 Dose: 1 tab Nitroglycerin (Nitrostat 0.4 Mg Tablet) 0.4 mg SL UD PRN Stop: 03/19/19 12:43 Ondansetron HCl (Zofran 4 Mg/2 Ml Vial) 4 mg IV Q6H PRN PRN PRN Reason: NAUSEA/VOMITING Stop: 03/17/19 17:09 Quetiapine Fumarate (Seroquel 25 Mg) 25 mg PO HS [facility] Stop: 03/18/19 21:59 Last Admin: 02/16/19 21:44 Dose: 25 mg Simvastatin (Zocor 20mg) 40 mg PO HS [facility] Stop: 03/18/19 21:59 Last Admin: 02/16/19 21:43 Dose: 40 mg Tamsulosin HCl (Flomax 0.4 Mg) 0.4 mg PO HS [facility] Stop: 03/18/19 21:59 Last Admin: 02/16/19 21:44 Dose: 0.4 mg Intake & Output 02/17/19 02/18/19 11:59 11:59 Intake Total 2260 Output Total 800 Balance 1460 Orders 02/16/19 16:30 Cilostazol 100 mg [Pletal 100 MG] 75 mg PO BIDAC 02/16/19 22:00 Multivitamins,Therapeutic Tab* [Theragran Multivitamin] 1 tab PO HS Quetiapine Fumarate 25 mg [Seroquel 25 MG] 25 mg PO HS Simvastatin 20Mg [Zocor 20Mg] 40 mg PO HS Tamsulosin HCl 0.4 mg [Flomax 0.4 MG] 0.4 mg PO HS 02/17/19 Discharge Routine 02/17/19 10:00 Carvedilol 3.125 mg [Coreg 3.125 MG] 3.125 mg PO DAILY 02/17/19 12:44 Nitroglycerin 0.4 mg Tablet [Nitrostat 0.4 MG Tablet] 0.4 mg SL UD PRN 02/17/19 22:00 Amlodipine Besylate 5 mg [Norvasc 5 mg] 10 mg PO HS Microbiology 02/15/19 16:10 Urine, Void Urine Culture - Final MIXED SELWYN; 3 OR MORE TYPES. NO PREDOMINANT ORGANISM. NO FURTHER WORKUP. PLEASE RESUBMIT IF CLINICALLY INDICATED. - Vitals & Intake/Output Vital Signs: Vital Signs Temperature 98.4 F 02/17/19 11:44 Pulse Rate 73 02/17/19 11:44 Respiratory Rate 12 02/17/19 11:44 Blood Pressure 111/70 02/17/19 11:44 O2 Sat by Pulse Oximetry 97 02/17/19 11:44 Intake & Output: Intake & Output 02/15/19 02/16/19 02/17/19 02/18/19 11:59 11:59 11:59 11:59 Intake Total 1592 2260 Output Total 100 800 Balance 1492 1460 Weight 81.647 kg - Lab Result Diagrams: 02/15/19 14:45 02/15/19 14:45 Micro Results-Entire Visit: Microbiology 02/15/19 16:10 Urine Culture - Final Urine, Void MIXED SELWYN; 3 OR MORE TYPES. NO PREDOMINANT ORGANISM. NO FURTHER WORKUP. PLEASE RESUBMIT IF CLINICALLY INDICATED. - Radiology Exams Ordered Rad Exams-Entire Visit: Radiology Procedures Category Date Time Status CHEST 1 VIEW (PORTABLE) Stat Exams 02/15/19 15:25 Completed - Procedures and Test Procedures and Tests throughout Hospitalization: Therapy Orders & Screens 02/16/19 05:00 EKG IN AM Comment: Discharge Exam General Appearance: no apparent distress, alert Neurologic Exam: alert, oriented x 3, cooperative, normal mood/affect, nml cerebellar function, sensation nml, No motor deficits Skin Exam: normal color, warm, dry Eye Exam: PERRL, EOMI, eyes nml inspection Ears, Nose, Throat Exam: normal ENT inspection, pharynx normal, moist mucous membranes Neck Exam: normal inspection, non-tender, supple, full range of motion Respiratory Exam: normal breath sounds, lungs clear, No respiratory distress Cardiovascular Exam: regular rate/rhythm, normal heart sounds Gastrointestinal/Abdomen Exam: soft, No tenderness, No mass Extremity Exam: normal inspection, normal range of motion Back Exam: normal inspection, normal range of motion, No CVA tenderness, No vertebral tenderness Male Genitalia Exam: deferred Rectal Exam: deferred Final Diagnosis/Problem List - Final Discharge Diagnosis/Problem (1) Bradyarrhythmia Current Visit: Yes Status: Resolved Code(s): I49.8 - OTHER SPECIFIED CARDIAC ARRHYTHMIAS (2) HTN (hypertension) Current Visit: Yes Status: Chronic Code(s): I10 - ESSENTIAL (PRIMARY) HYPERTENSION (3) CAD (coronary artery disease) Current Visit: Yes Status: Acute Code(s): I25.10 - ATHSCL HEART DISEASE OF [place] CORONARY ARTERY W/O ANG PCTRS - Discharge Discharge Date: 02/17/19 Disposition: Home, Self-Care Condition: Stable Prescriptions: New Amlodipine Besylate 5 mg [Norvasc 5 mg] 10 mg PO HS tablet Carvedilol 3.125 mg [Coreg 3.125 MG] 3.125 mg PO DAILY 30 Days #30 tablet Triamcinolone 0.025% Cream [Triamcinolone Acetonide] 80 gm TP BID #1 cream..g. Continue Lisinopril 20 mg PO DAILY Levothyroxine Sodium 75 Mcg [Synthroid 75 Mcg] 75 mcg PO DAILY Clopidogrel Bisulfate 75 mg [PLAVIX 75 MG Tablet] 75 mg PO HS Tamsulosin HCl 0.4 mg [Flomax 0.4 MG] 0.4 mg PO HS Pravastatin Sodium 40 mg PO HS Multivitamin [Multivitamins] 1 each PO HS Donepezil HCl [Aricept] 10 mg PO BID Cilostazol 75 mg PO BID Aspirin 81 mg PO DAILY Quetiapine Fumarate [Seroquel] 25 mg PO HS Docusate Sodium 100 mg [Colace 100 MG] 100 mg PO BID Memantine HCl [Namenda] 10 mg PO BID Nitroglycerin 0.4 mg (Ed) [Nitrostat 0.4 MG (ED)] 0.4 mg SL UD Discontinued Amlodipine Besylate 10 mg [Norvasc 10 MG] 10 mg PO DAILY Metoprolol Tartrate 50 mg [Lopressor 50 MG] 50 mg PO BID Instructions: Bradycardia (DC), Low Blood Pressure (DC) Follow up with: YUDITH MCMAHON [ACTIVE STAFF] - 02/27/19 2:00 pm (at [place]) KARYN MARC MD [Primary Care Provider] - 02/24/19 1:45 pm
[2019-02-17] MEDS ORDERED: NORVASC 5 MG PO SCH (22:00)
== END 2019-02-17 13:10 | disposition home or self-care (01) ==
LOC: ED 14:16 → MED SURG 17:32
PROVIDERS: ADMIT General Practice; ATTEND General Practice
DX: I49.8 Other specified cardiac arrhythmias (principal); I10 Essential (primary) hypertension; I25.10 Atherosclerotic heart disease of native coronary artery without angina pectoris; E78.00 Pure hypercholesterolemia, unspecified; R42 Dizziness and giddiness; E03.9 Hypothyroidism, unspecified; Z79.899 Other long term (current) drug therapy; Z79.01 Long term (current) use of anticoagulants
CPT/HCPCS: 36000; 36415; 71045; 80053; 81001; 83735; 83880; 84484; 85025; 85610; 87086; 93005; 93041; 93268; 94762; 96360; 96361; 99285; G0378; A9270-GY

== ENCOUNTER 2019-02-26 11:37 | Emergency (ER) | payer BC ==
[2019-02-26] MEDS ORDERED: BABY ASPIRIN 81 MG CHEW PO ONE (11:40)
[2019-02-26] MEDS ORDERED: Sodium Chloride 0.9% 1000 ML 1,000 ML IV SCH (11:45)
[2019-02-26 11:55] LABS: BASOPHIL % 0.6 % (0.0-0.4); Basophil (Absolute #) 0.05 (0-0.4); Eosinophil % 7.8 % (0.00-5.0); Granulocyte Absolute (ANC) 4.82 (1.4-6.9); Granulocytes % 62.5 % (36.0-66.0); Hematocrit 39.2 % (42-50); Hemoglobin 12.9 gm/dl (12.5-18.0); Lymphocyte (Absolute #) 1.22 (1.0-4.6); Lymphocytes % 15.8 % (24.0-44.0); Mean Cell Volume 91.8 fl (78-100); Mean Corpuscular Hemoglobin 30.2 pg (26-32); Mean Corpuscular Hgb Concent. 32.9 g/dl (32-36); Monocyte (Absolute #) 1.03 (0.0-1.3); Monocytes % 13.3 % (0.0-12.0); Platelet Count 212 K/mm3 (150-450); Red Blood Count 4.27 M/mm3 (4.1-5.6); Red Cell Distribution Width 15.7 % (11.5-14.0); White Blood Count 7.7 K/mm3 (4.0-10.5)
[2019-02-26] MEDS ORDERED: BABY ASPIRIN 81 MG CHEW ONE (12:03)
[2019-02-26] MEDS ORDERED: Sodium Chloride 0.9% 1000 ML 1,000 ML ONE (12:03)
[2019-02-26 12:04] LABS: ALBUMIN 4.1 g/dL (3.5-5.0); BILIRUBIN,TOTAL 0.4 mg/dL (0.2-1.3); Calcium 10.1 mg/dL (8.4-10.2); Creatinine 1 1.25 mg/dL (0.66-1.25); Potassium 4.7 mmol/L (3.5-5.1); Total Protein 7.4 g/dL (6.3-8.2)
--- NOTE | 2019-02-26 12:13 | ERPHSYRPT ---
- History of Present Illness Time Seen by Provider: 02/26/19 12:08 Historian: patient, family Exam Limitations: no limitations Patient Subjective Stated Complaint: pt states "He has alzhiemer's and we were sitting in [employer] and he all of a sudden went pale, short of breath, had chest pain. He says he feels much better now." Triage Nursing Assessment: Pt presented alert and oriented X 3, skin pwd. Pt presented sitting upright in a wheelchair, slighlty short of breath. Pt denied any chest pain at this time, laughing and coughing intermittantly. Physician History: Mr galvan is a 73 years old male came to ER with c/o chest pain lasted for 20 minutes. Patient is chest pain free in ER patient states "He has alzhiemer 's and we were sitting in [employer] and he all of a sudden went pale, short of breath, had chest pain. He says he feels much better now." Timing/Duration: today Activities at Onset: none Quality: tightness Location: substernal Chest Pain Radiation: no radiation Severity of Pain-Max: mild Severity of Pain-Current: mild Associated Symptoms: shortness of breath Prior Chest Pain/Cardiac Workup: heart attack, recently seen/treated, recent hospitalization Nitro Today/Relief: no nitro taken today Aspirin Treatment Today: 81 mg x 1 Allergies/Adverse Reactions: No Known Drug Allergies Allergy (Verified 02/15/19 14:51) Home Medications: Lisinopril 20 mg PO DAILY 03/24/12 [History] Levothyroxine Sodium 75 Mcg [Synthroid 75 Mcg] 75 mcg PO DAILY 08/30/14 [ History] Clopidogrel Bisulfate 75 mg [PLAVIX 75 MG Tablet] 75 mg PO HS 12/17/16 [ History] Aspirin 81 mg PO DAILY 11/20/17 [History] Cilostazol 75 mg PO BID 11/20/17 [History] Donepezil HCl [Aricept] 10 mg PO BID 11/20/17 [History] Multivitamin [Multivitamins] 1 each PO HS 11/20/17 [History] Pravastatin Sodium 40 mg PO HS 11/20/17 [History] Tamsulosin HCl 0.4 mg [Flomax 0.4 MG] 0.4 mg PO HS 11/20/17 [History] Docusate Sodium 100 mg [Colace 100 MG] 100 mg PO BID 02/15/19 [History] Memantine HCl [Namenda] 10 mg PO BID 02/15/19 [History] Nitroglycerin 0.4 mg (Ed) [Nitrostat 0.4 MG (ED)] 0.4 mg SL UD 02/15/19 [ History] Quetiapine Fumarate [Seroquel] 25 mg PO HS 02/15/19 [History] Hx Tetanus, Diphtheria Vaccination/Date Given: No Hx Influenza Vaccination/Date Given: Yes Hx Pneumococcal Vaccination/Date Given: Yes Immunizations Up to Date: Yes - Review of Systems Constitutional: No Fever, No Chills Eyes: No Symptoms Ears, Nose, & Throat: No Symptoms Respiratory: Dyspnea, No Cough Cardiac: Chest Pain, No Edema, No Syncope Abdominal/Gastrointestinal: No Abdominal Pain, No Nausea, No Vomiting, No Diarrhea Genitourinary Symptoms: No Dysuria Musculoskeletal: No Back Pain, No Neck Pain Skin: No Rash Neurological: No Dizziness, No Focal Weakness, No Sensory Changes Psychological: No Symptoms Endocrine: No Symptoms All Other Systems: Reviewed and Negative - Past Medical History Pertinent Past Medical History: Yes Neurological History: Alzheimer's Disease, Dementia ENT History: No Pertinent History Cardiac History: High Cholesterol, Hypertension Respiratory History: No Pertinent History Endocrine Medical History: Hypothyroidism Musculoskeletal History: Degenerative Disk Disease GI Medical History: Diverticulitis, GERD, Hernia History: No Pertinent History Psycho-Social History: No Pertinent History Male Reproductive Disorders: No Pertinent History Other Medical History: skin cancer and tremor spouse states has a hiatel hernia and 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 bilateral foot surgery for bone spurs. quadruple bypass in July 2018 - Social History Smoking Status: Former smoker Exposure to second hand smoke: No Drug Use: none Patient Lives Alone: No - Nursing Vital Signs Nursing Vital Signs: Initial Vital Signs Temperature 98.2 F 02/26/19 11:38 Pulse Rate 68 02/26/19 11:38 Respiratory Rate 20 02/26/19 11:38 Blood Pressure 104/56 02/26/19 11:38 O2 Sat by Pulse Oximetry 97 02/26/19 11:38 Pain Scale Pain Intensity 0 - Physical Exam General Appearance: no apparent distress, alert Eye Exam: PERRL/EOMI, eyes nml inspection Ears, Nose, Throat Exam: normal ENT inspection, moist mucous membranes Neck Exam: normal inspection, non-tender, supple, full range of motion Respiratory Exam: normal breath sounds, lungs clear, No respiratory distress Cardiovascular Exam: regular rate/rhythm, normal heart sounds Gastrointestinal/Abdomen Exam: soft, No tenderness, No mass Back Exam: normal inspection, No CVA tenderness, No vertebral tenderness Extremity Exam: normal inspection, normal range of motion Neurologic Exam: alert, oriented x 3, cooperative, normal mood/affect, sensation nml, No motor deficits Skin Exam: normal color, warm, dry SpO2: 97 - Course Nursing assessment & vital signs reviewed: Yes - Radiology Exams Chest X-ray Interpretation: Reviewed by me, Negative Ordered Tests: Active Orders 24 hr Category Date Time Status Quality Control Projectionist STAT Care 02/26/19 11:40 Active EKG-ER Only STAT Care 02/26/19 11:40 Active IV Insertion STAT Care 02/26/19 11:40 Active Oxygen-ED Only Nasal Cannula 2 lpm Care 02/26/19 11:40 Active Regular Diet Diet 02/26/19 Dinner Active CHEST 1 VIEW (PORTABLE) Stat Exams 02/26/19 11:40 Taken CBC W DIFF Stat Lab 02/26/19 11:50 Completed CMP Stat Lab 02/26/19 11:50 Completed NT PRO BNP Stat Lab 02/26/19 11:50 Completed TROPONIN Q3H Lab 02/26/19 11:45 Ordered TROPONIN Q3H Lab 02/26/19 14:45 Ordered TROPONIN Q3H Lab 02/26/19 17:45 Ordered TROPONIN Q3H Lab 02/26/19 20:45 Ordered TROPONIN Q3H Lab 02/26/19 23:45 Ordered Medication Summary Generic Name Dose Route Start Last Admin Trade Name Freq PRN Reason Stop Dose Admin Sodium Chloride 1,000 mls @ 50 mls/hr 02/26/19 11:45 02/26/19 12:04 Sodium Chloride 0.9% 1000 Ml IV 03/28/19 11:44 50 mls/hr .Q20H ALICIA Administration Discontinued Medications Generic Name Dose Route Start Last Admin Trade Name Joshq PRN Reason Stop Dose Admin Aspirin 324 mg 02/26/19 11:40 02/26/19 12:04 Baby Aspirin 81 Mg Chew PO 02/26/19 11:41 324 mg STAT ONE Administration Aspirin Confirm 02/26/19 12:03 Baby Aspirin 81 Mg Chew Administered 02/26/19 12:04 Dose 324 mg .ROUTE .STK-MED ONE Lab/Rad Data: Laboratory Result Diagrams 02/26/19 11:50 02/26/19 11:50 Laboratory Results 02/26/19 02/26/19 Range/Units 11:50 11:50 WBC 7.7 (4.0-10.5) K/mm3 RBC 4.27 (4.1-5.6) M/mm3 Hgb 12.9 (12.5-18.0) gm/dl Hct 39.2 L (42-50) % MCV 91.8 (78-100) fl MCH 30.2 (26-32) pg MCHC 32.9 (32-36) g/dl RDW 15.7 H (11.5-14.0) % Plt Count 212 (150-450) K/mm3 MPV 10.0 H (6-9.5) fl Gran % 62.5 (36.0-66.0) % Eos # (Auto) 0.60 H (0-0.5) Absolute Lymphs (auto) 1.22 (1.0-4.6) Absolute Monos (auto) 1.03 (0.0-1.3) Lymphocytes % 15.8 L (24.0-44.0) % Monocytes % 13.3 H (0.0-12.0) % Eosinophils % 7.8 H (0.00-5.0) % Basophils % 0.6 (0.0-0.4) % Absolute Granulocytes 4.82 (1.4-6.9) Basophils # 0.05 (0-0.4) Sodium 142 (137-145) mmol/L Potassium 4.7 (3.5-5.1) mmol/L Chloride 104 (98-107) mmol/L Carbon Dioxide 27 (22-30) mmol/L Anion Gap 16.0 H (5-15) MEQ/L BUN 14 (9-20) mg/dL Creatinine 1.25 (0.66-1.25) mg/dL Estimated GFR 59.8 ML/MIN Glucose 51 L (74-106) mg/dL Calcium 10.1 (8.4-10.2) mg/dL Total Bilirubin 0.40 (0.2-1.3) mg/dL AST 27 (17-59) U/L ALT 18 (0-50) U/L Alkaline Phosphatase 87 (38-126) U/L NT-Pro-B Natriuret Pep 132 (0-1800) pg/mL Serum Total Protein 7.4 (6.3-8.2) g/dL Albumin 4.1 (3.5-5.0) g/dL - Progress Progress: improved Air Movement: good Blood Culture(s) Obtained: No Antibiotics given: No Counseled pt/family regarding: lab results, diagnosis, need for follow-up, rad results - Departure Departure Disposition: Home Clinical Impression: Chest pain at rest, Diaphoresis CAD (coronary artery disease) Qualifiers: Coronary Disease-Associated Artery/Lesion type: [place] artery [place] vs. transplanted heart: [place] heart Associated angina: with stable angina Qualified Code(s): I25.118 - Atherosclerotic heart disease of [place] coronary artery with other forms of angina pectoris Condition: Stable Critical Care Time: Yes Critical Care Time(excluding separately billable procedures): 30-74 minutes Referrals: KARYN MARC MD [Primary Care Provider] - Instructions: Chest Pain (DC), Atypical Chest Pain, Angina (DC) Additional Instructions: SETH GALVAN OJ was seen on 02/26/19 n the Emergency Room. At that time you were treated for an emergent condition, during your visit Laboratory, Radiology and/or other procedures may have been ordered. It is very important that you follow-up with your Primary Care Physician KARYN MARC within the next 24- 48 hours to review your Emergency Room visit and the final results of testing that was ordered. Some test results such as Urine Cultures, Blood Cultures, and other cultures if ordered will not be finalized for 24-48 hours. If you do not have a Primary Care Provider please call the medical records department at [phone] ext [phone] to obtain a copy of your results or you may sign into our patient portal to obtain these results by visiting us @ [email or web address] and completing the following steps: 1. Click on the Patient Portal link 2. Click the Patient Self Enrollment Link to complete the enrollment form and entering your 3. Once the enrollment form is completed you will receive an email with a temporary ID and password at the email address you provided. 4. Next choose a user name and password. Your user name must be at least 4 characters long and your password must be at least 4 characters long. 5. Choose a security question from the list and provide your answer to the question. If you already have signed into the Health Portal you may access your Health Care Information 17/05 by the following steps: 1. Login to our website @ [email or web address] 2. Enter your original user name and password. FAQS [facility] Portal is an online tool that contains your Lab Results, Radiology Reports, Visit History, Discharge Instructions and Health Summary Lab and Radiology Results will not be available for 72 hours on the portal. The Portal is a secure site, passwords are encryted and URLs are re-written so they cannot be copied and pasted. You and authorized family members are the only ones who can access your Portal. Also there is a timeout feature that protects your information if you leave the Portal page open. If you have technical difficulty please use the Contact Us link on the page this will allow you to submit any questions you have regarding the Portal or you may contact the Medical Record Department at [phone] ext [phone]. Prescriptions: Nitroglycerin 0.4 mg Tablet [Nitrostat 0.4 MG Tablet] 0.4 mg SL UD #30 bottle
[2019-02-26 12:46] VITALS: O2SAT 98
[2019-02-26 13:14] VITALS: BP 112/60; PULSE 62
--- NOTE | 2019-02-26 21:05 | XRAY ---
Indication: Chest pain and short of breath. Comparison: February 15, 2019. Portable chest again slightly underinflated with new lingular subsegmental atelectasis. Remaining lungs clear. Heart is not enlarged again with CABG surgery.
== END 2019-02-26 14:10 | disposition home or self-care (01) ==
LOC: ED 11:37
DX: R07.9 Chest pain, unspecified (principal); I25.118 Atherosclerotic heart disease of native coronary artery with other forms of angina pectoris; G30.9 Alzheimer's disease, unspecified; F02.80 Dementia in other diseases classified elsewhere, unspecified severity, without behavioral disturbance, psychotic disturbance, mood disturbance, and anxiety; I10 Essential (primary) hypertension; E78.00 Pure hypercholesterolemia, unspecified; E03.9 Hypothyroidism, unspecified
CPT/HCPCS: 36000; 36415; 71045; 80053; 83880; 84484; 85025; 93005; 93041; 96360; 96374; 99284; A9270-GY

== ENCOUNTER 2021-11-04 15:42 | Emergency (ER) | payer MEDICARE ==
[2021-11-04] MEDS ORDERED: Sodium Chloride 0.9% 1000 ML 1,000 ML IV STA (16:00)
[2021-11-04] MEDS ORDERED: solu-MEDROL 125 MG, Sterile H2O 10 ml 2 ML IV ONE ×2 (16:00)
--- NOTE | 2021-11-04 16:26 | XRAY ---
Indication: Cough. Positive Covid 19. Comparison: February 26, 2019. Portable chest remains underinflated with minimal lingula subsegmental atelectasis/scarring. No focal infiltrate, consolidation, or large effusion. Heart not enlarged again with CABG. Bony thorax intact again with mild osteopenia and degenerative changes. Impression: Continued nonacute underinflated chest with chronic features.
[2021-11-04] MEDS ORDERED: solu-MEDROL ONE (16:34)
[2021-11-04] MEDS ORDERED: Sodium Chloride 0.9% 1000 ML 1,000 ML ONE (16:34)
[2021-11-04] MEDS ORDERED: Sterile H2O 10 ml IJ ONE (16:34)
[2021-11-04 16:35] LABS: Absolute Neutrophil Ct (ANC) 5.44 (1.4-6.9); Basophil (Absolute #) 0.01 (0-0.4); Eosinophil % 0.5 % (0.00-5.0); Eosinophil (Absolute #) 0.04 (0-0.5); Hematocrit 39.4 % (42-50); Hemoglobin 12.5 gm/dl (12.5-18.0); Lymphocyte (Absolute #) 1.31 (1.0-4.6); Lymphocytes % 16.6 % (24.0-44.0); Mean Cell Volume 94.9 fl (78-100); Mean Corpuscular Hemoglobin 30.1 pg (26-32); Mean Corpuscular Hgb Concent. 31.7 g/dl (32-36); Mean Platelet Volume 9.9 fl (7.5-11.0); Monocyte (Absolute #) 1.07 (0.0-1.3); Monocytes % 13.6 % (0.0-12.0); Neutrophil % 69.2 % (36.0-66.0); Platelet Count 207 K/mm3 (150-450); Red Blood Count 4.15 M/mm3 (4.1-5.6); Red Cell Distribution Width 13.6 % (11.5-14.0); White Blood Count 7.9 K/mm3 (4.0-10.5)
[2021-11-04 16:39] LABS: INR 1.07 (0.8-3.0); PROTIME 12.6 SECONDS (9.4-12.5)
[2021-11-04 17:09] VITALS: BP 94/52
[2021-11-04 17:32] LABS: Appearance SLIGHTLY CLOUDY (CLEAR); Bacteria RARE /HPF (NEGATIVE); Bilirubin NEGATIVE (NEGATIVE); Blood NEGATIVE Ery/ul (0-5); Glucose NEGATIVE (NEGATIVE); Ketones TRACE (NEGATIVE); Leukocyte Esterase TRACE (NEGATIVE); Mucus SLIGHT /HPF (NEGATIVE); Nitrite NEGATIVE (NEGATIVE); Protein,Urine Dip 100 (Negative); RBC 0-2 /HPF (0-2); Specific Gravity 1.026 (1.005-1.025); Urobilinogen 2 mg/dL (0-1)
--- NOTE | 2021-11-04 17:48 | ERPHSYRPT ---
- History of Present Illness Time Seen by Provider: 11/04/21 16:05 Source: family Exam Limitations: clinical condition Patient Subjective Stated Complaint: Pt c/o of cough and SOB, pt had a positive covid test today at Dr. Marc's office Triage Nursing Assessment: Pt brought to the ER by his due to positive covid tests, vitals wnl, denies pain, non productive cough, hiccups, pulses normal, skin n/w/d, no difficulty breathing, doesn't appear to be in any distress Physician History: Patient is a 76-year-old male who has severe dementia who is in the ER with his both of them are COVID-positive. They were sent to the office by their PCP they have both been sick for 2 days with coughs that are minimally productive. History is obtained from Mrs. Berger since he is so severely demented Timing/Duration: day(s) (2) Cough Quality/Degree: productive cough Possible Cause: no prior episodes Modifying Factors: Improves With: coughing Allergies/Adverse Reactions: No Known Drug Allergies Allergy (Verified 11/04/21 16:01) Home Medications: lisinopriL [Lisinopril] 20 mg PO DAILY 03/24/12 [History] Levothyroxine Sodium 75 Mcg [Synthroid 75 Mcg] 75 mcg PO DAILY 08/30/14 [History] Aspirin 81 mg PO DAILY 11/20/17 [History] Donepezil HCl [Aricept] 10 mg PO BID 11/20/17 [History] Multivitamin [Multivitamins] 1 each PO HS 11/20/17 [History] Pravastatin Sodium 40 mg PO HS 11/20/17 [History] Tamsulosin HCl 0.4 mg [Flomax 0.4 MG] 0.4 mg PO HS 11/20/17 [History] cilostazoL [Cilostazol] 75 mg PO BID 11/20/17 [History] Docusate Sodium 100 mg [Colace 100 MG] 200 mg PO BID 02/15/19 [History] Quetiapine Fumarate [Seroquel] 25 mg PO HS 02/15/19 [History] Amlodipine Besylate 5 mg [Norvasc 5 mg] 5 mg PO HS 11/04/21 [History] Finasteride 5 mg [Proscar 5 MG] 5 mg PO DAILY 11/04/21 [History] Isosorbide Mononitrate 30 mg [Imdur 30 MG] 30 mg PO DAILY 11/04/21 [History] Memantine HCl [Memantine HCl ER] 28 mg PO DAILY 11/04/21 [History] PANTOPRAZOLE 40 mg Tablet [Protonix 40MG Tablet] 40 mg PO DAILY 11/04/21 [History] Hx Tetanus, Diphtheria Vaccination/Date Given: No Hx Influenza Vaccination/Date Given: Yes Hx Pneumococcal Vaccination/Date Given: Yes Travel Risk - International Travel Have you traveled outside of the country in past 3 weeks: No - Coronavirus Screening Are you exhibiting any of the following symptoms?: Yes Symptoms: Cough: New Onset, Headaches/Body Aches/Fatigue Close contact with a COVID-19 positive Pt in past 14-21 Days: No - Vaccine Status Have you recieved a Covid-19 vaccination: No - Review of Systems All Other Systems: Unable due to dementia - Past Medical History Pertinent Past Medical History: Yes Neurological History: Alzheimer's Disease, Dementia ENT History: No Pertinent History Cardiac History: High Cholesterol, Hypertension Respiratory History: No Pertinent History Endocrine Medical History: Hypothyroidism Musculoskeletal History: Degenerative Disk Disease GI Medical History: Diverticulitis, GERD, Hernia History: No Pertinent History Psycho-Social History: No Pertinent History Male Reproductive Disorders: No Pertinent History Other Medical History: skin cancer and tremor spouse states has a hiatel hernia and 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 bilateral foot surgery for bone spurs. quadruple bypass in July 2018 - Social History Smoking Status: Former smoker Exposure to second hand smoke: No Drug Use: none Patient Lives Alone: No - Nursing Vital Signs Nursing Vital Signs: Initial Vital Signs Temperature 97.6 F 11/04/21 15:53 Pulse Rate 79 11/04/21 15:53 Respiratory Rate 16 11/04/21 15:53 Blood Pressure 109/59 11/04/21 15:53 O2 Sat by Pulse Oximetry 99 11/04/21 15:53 Pain Scale Pain Intensity 0 - Physical Exam General Appearance: no apparent distress, alert Eye Exam: PERRL/EOMI, eyes nml inspection Ears, Nose, Throat Exam: normal ENT inspection, TMs normal, pharynx normal, moist mucous membranes Neck Exam: normal inspection, non-tender, supple, full range of motion Respiratory Exam: normal breath sounds, lungs clear, No respiratory distress Cardiovascular Exam: regular rate/rhythm, normal heart sounds Gastrointestinal/Abdomen Exam: soft, No tenderness Back Exam: normal inspection, No CVA tenderness, No vertebral tenderness Extremity Exam: normal inspection, normal range of motion Neurologic Exam: cooperative, normal mood/affect, sensation nml, disoriented, confusion, No motor deficits Skin Exam: normal color, warm, dry, No rash Lymphatic Exam: No adenopathy SpO2: 98 - Course Nursing assessment & vital signs reviewed: Yes EKG Interpreted by Me: RATE (73), Sinus Rhythm, NORMAL AXIS, NORMAL INTERVALS, NORMAL QRS, Non-specific ST Changes - Radiology Exams Chest X-ray Interpretation: Reviewed by me, Negative Ordered Tests: Active Orders 24 hr Category Date Time Status EKG-ER Only STAT Care 11/04/21 16:00 Active IV Insertion STAT Care 11/04/21 16:00 Active CHEST 1 VIEW (PORTABLE) Stat Exams 11/04/21 16:01 Completed CBC W DIFF Stat Lab 11/04/21 16:23 Completed CULTURE,URINE Stat Lab 11/04/21 16:46 Received D-DIMER QUANTITATIVE Stat Lab 11/04/21 16:23 Completed Lactic Acid Stat Lab 11/04/21 16:00 Completed NT PRO BNP Stat Lab 11/04/21 16:23 Completed PROTIME WITH INR Stat Lab 11/04/21 16:23 Completed TROPONIN Q3H Lab 11/04/21 16:23 Completed TROPONIN Q3H Lab 11/04/21 19:00 Ordered TROPONIN Q3H Lab 11/04/21 22:00 Ordered TROPONIN Q3H Lab 11/05/21 01:00 Ordered TROPONIN Q3H Lab 11/05/21 04:00 Ordered UA W/RFX UR CULTURE Stat Lab 11/04/21 16:46 Completed Medication Summary Discontinued Medications Generic Name Dose Route Start Last Admin Trade Name Freq PRN Reason Stop Dose Admin Methylprednisolone Sodium 0 mg 11/04/21 16:00 11/04/21 16:38 Succinate 125 mg/ Sterile IV 11/04/21 16:01 125 mg Water 2 ml STAT ONE Administration Sodium Chloride 1,000 mls @ 999 mls/hr 11/04/21 16:00 11/04/21 16:38 Sodium Chloride 0.9% 1000 Ml IV 11/04/21 17:00 999 mls/hr .Q1H1M STA Administration Sodium Chloride Confirm 11/04/21 16:34 Sodium Chloride 0.9% 1000 Ml Administered 11/04/21 16:35 Dose 1,000 mls @ ud .ROUTE .STK-MED ONE Methylprednisolone Sodium Succinate Confirm 11/04/21 16:34 Methylprednis Sod Succ 125 Mg/2 Ml Vial Administered 11/04/21 16:35 Dose 125 mg .ROUTE .STK-MED ONE Sterile Water Confirm 11/04/21 16:34 Water For Injection,Sterile 10 Ml Vial Administered 11/04/21 16:35 Dose 10 ml IJ .STK-MED ONE Lab/Rad Data: Laboratory Result Diagrams 11/04/21 16:23 Laboratory Results 11/04/21 11/04/21 11/04/21 Range/Units 16:46 16:23 16:23 WBC (4.0-10.5) K/mm3 RBC (4.1-5.6) M/mm3 Hgb (12.5-18.0) gm/dl Hct (42-50) % MCV (78-100) fl MCH (26-32) pg MCHC (32-36) g/dl RDW (11.5-14.0) % Plt Count (150-450) K/mm3 MPV (7.5-11.0) fl Gran % (36.0-66.0) % Eos # (Auto) (0-0.5) Absolute Lymphs (auto) (1.0-4.6) Absolute Monos (auto) (0.0-1.3) Lymphocytes % (24.0-44.0) % Monocytes % (0.0-12.0) % Eosinophils % (0.00-5.0) % Basophils % (0.0-0.4) % Absolute Granulocytes (1.4-6.9) Basophils # (0-0.4) PT 12.6 H (9.4-12.5) SECONDS INR 1.07 (0.8-3.0) D-Dimer 3282 H* (215-500) ng/mL Lactic Acid (0.4-2.0) Troponin I (0.000-0.034) ng/mL NT-Pro-B Natriuret Pep 225 (0-1800) pg/mL Urine Color DRAKE (YELLOW) Urine Appearance SLIGHTLY CLOUDY (CLEAR) Urine pH 5.0 (5-6) Ur Specific [place] 1.026 (1.005-1.025) Urine Protein 100 (Negative) Urine Ketones TRACE (NEGATIVE) Urine Blood NEGATIVE (0-5) Michael/ul Urine Nitrite NEGATIVE (NEGATIVE) Urine Bilirubin NEGATIVE (NEGATIVE) Urine Urobilinogen 2 (0-1) mg/dL Ur Leukocyte Esterase TRACE (NEGATIVE) Urine WBC (Auto) 6-10 (0-5) /HPF Urine RBC (Auto) 0-2 (0-2) /HPF U Hyaline Cast (Auto) 11-25 (0-2) /LPF U Epithel Cells (Auto) NONE (FEW) /HPF Urine Bacteria (Auto) RARE (NEGATIVE) /HPF Urine Mucus (Auto) SLIGHT (NEGATIVE) /HPF Urine Culture Reflexed YES (NO) Urine Glucose NEGATIVE (NEGATIVE) mg/dL 11/04/21 11/04/21 11/04/21 Range/Units 16:23 16:23 16:00 WBC 7.9 (4.0-10.5) K/mm3 RBC 4.15 (4.1-5.6) M/mm3 Hgb 12.5 (12.5-18.0) gm/dl Hct 39.4 L (42-50) % MCV 94.9 (78-100) fl MCH 30.1 (26-32) pg MCHC 31.7 L (32-36) g/dl RDW 13.6 (11.5-14.0) % Plt Count 207 (150-450) K/mm3 MPV 9.9 (7.5-11.0) fl Gran % 69.2 H (36.0-66.0) % Eos # (Auto) 0.04 (0-0.5) Absolute Lymphs (auto) 1.31 (1.0-4.6) Absolute Monos (auto) 1.07 (0.0-1.3) Lymphocytes % 16.6 L (24.0-44.0) % Monocytes % 13.6 H (0.0-12.0) % Eosinophils % 0.5 (0.00-5.0) % Basophils % 0.1 (0.0-0.4) % Absolute Granulocytes 5.44 (1.4-6.9) Basophils # 0.01 (0-0.4) PT (9.4-12.5) SECONDS INR (0.8-3.0) D-Dimer (215-500) ng/mL Lactic Acid 1.5 (0.4-2.0) Troponin I < 0.012 (0.000-0.034) ng/mL NT-Pro-B Natriuret Pep (0-1800) pg/mL Urine Color (YELLOW) Urine Appearance (CLEAR) Urine pH (5-6) Ur Specific [place] (1.005-1.025) Urine Protein (Negative) Urine Ketones (NEGATIVE) Urine Blood (0-5) Michael/ul Urine Nitrite (NEGATIVE) Urine Bilirubin (NEGATIVE) Urine Urobilinogen (0-1) mg/dL Ur Leukocyte Esterase (NEGATIVE) Urine WBC (Auto) (0-5) /HPF Urine RBC (Auto) (0-2) /HPF U Hyaline Cast (Auto) (0-2) /LPF U Epithel Cells (Auto) (FEW) /HPF Urine Bacteria (Auto) (NEGATIVE) /HPF Urine Mucus (Auto) (NEGATIVE) /HPF Urine Culture Reflexed (NO) Urine Glucose (NEGATIVE) mg/dL - Progress Progress: unchanged Air Movement: good Blood Culture(s) Obtained: No Antibiotics given: Yes Discussed with : Other (Dr Grant) - Departure Departure Disposition: Home Clinical Impression: COVID-19 Condition: Stable Critical Care Time: No Referrals: KARYN MARC MD [Primary Care Provider] - Follow up/PCP as directed Instructions: Coronavirus Disease 2019 (COVID-19) (DC) Prescriptions: Dexamethasone 4 mg [Decadron 4 MG] 8 mg PO DAILY 7 Days #14 tablet Doxycycline Hyclate 100 mg [Vibramycin 100 MG] 100 mg PO BID #14 tab
[2021-11-04 18:03] VITALS: PULSE 76; O2SAT 96
== END 2021-11-04 18:03 | disposition home or self-care (01) ==
LOC: ED 15:42
DX: U07.1 COVID-19 (principal); R05.9 Cough, unspecified; G30.9 Alzheimer's disease, unspecified; F02.80 Dementia in other diseases classified elsewhere, unspecified severity, without behavioral disturbance, psychotic disturbance, mood disturbance, and anxiety; E78.5 Hyperlipidemia, unspecified; I10 Essential (primary) hypertension; Z79.52 Long term (current) use of systemic steroids; Z79.899 Other long term (current) drug therapy
CPT/HCPCS: 36000; 36415; 71045; 81001; 83605; 83880; 84484; 85025; 85379; 85610; 87086; 93005; 96360; 96375; 99284; J2930

== ENCOUNTER 2022-04-06 10:57 | Emergency (ER) | payer MEDICARE ==
[2022-04-06] MEDS ORDERED: BABY ASPIRIN 81 MG CHEW PO ONE (11:03)
[2022-04-06 11:19] LABS: Absolute Neutrophil Ct (ANC) 5.16 x10^3/uL (1.4-6.9); Basophil (Absolute #) 0.06 x10^3/uL (0-0.4); Eosinophil % 7.2 % (0.00-5.0); Hematocrit 37.8 % (42-50); Hemoglobin 12.3 g/dL (12.5-18.0); Lymphocyte (Absolute #) 1.59 x10^3/uL (1.0-4.6); Mean Cell Volume 93.8 fL (78-100); Mean Corpuscular Hemoglobin 30.5 pg (26-32); Mean Corpuscular Hgb Concent. 32.5 g/dL (32-36); Monocyte (Absolute #) 0.92 x10^3/uL (0.0-1.3); Neutrophil % 61.9 % (36.0-66.0); Platelet Count 183 x10^3/uL (150-450); Red Blood Count 4.03 x10^6/uL (4.1-5.6); Red Cell Distribution Width 12.4 % (11.5-14.0); White Blood Count 8.4 x10^3/uL (4.0-10.5)
--- NOTE | 2022-04-06 11:19 | ERPHSYRPT ---
- History of Present Illness Time Seen by Provider: 04/06/22 11:00 Historian: family Exam Limitations: clinical condition Patient Subjective Stated Complaint: pt here for chest pain to [facility],pt is a poor historian due to alz,unsure of how long he has had causey, he has hx of triple a that is over 6.8. Triage Nursing Assessment: pt alert, anxious, resp easy , face mask in place, chest clear, abd soft. bm yesterday Physician History: This is a 76-year-old white male patient of Dr. 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 Shannan nettles and has severe Alzheimer's dementia, elevated cholesterol, hypertension, hypothyroidism, degenerative disc disease, gastroesophageal, reflux disease, coronary artery disease (CABG) and has peripheral vascular disease with abdominal aortic aneurysm that is 6.8 cm near the left renal artery that they are aware of and are declining surgical intervention for and presents with chest pain of unknown duration. Patient is unable to describe the type of pain that he is having and whether or not there is any radiation of pain. Timing/Duration: other (Unknown durationpatient has severe Alzheimer's dementia) Activities at Onset: none Quality: other (Patient with severe Alzheimer dementia) Severity of Pain-Max: mild Severity of Pain-Current: mild (Unable to exactly quantify. Patient has severe Alzheimer's dementia) Modifying Factors: Improves With: nothing Associated Symptoms: denies symptoms Prior Chest Pain/Cardiac Workup: cardiac cath Nitro Today/Relief: no nitro taken today Aspirin Treatment Today: no aspirin today Allergies/Adverse Reactions: No Known Drug Allergies Allergy (Verified 04/06/22 11:08) Home Medications: lisinopriL [Lisinopril] 20 mg PO DAILY 03/24/12 [History] Levothyroxine Sodium 75 Mcg [Synthroid 75 Mcg] 75 mcg PO DAILY 08/30/14 [History] Aspirin 81 mg PO DAILY 11/20/17 [History] Donepezil HCl [Aricept] 10 mg PO BID 11/20/17 [History] Multivitamin [Multivitamins] 1 each PO HS 11/20/17 [History] Pravastatin Sodium 40 mg PO HS 11/20/17 [History] Tamsulosin HCl 0.4 mg [Flomax 0.4 MG] 0.4 mg PO HS 11/20/17 [History] cilostazoL [Cilostazol] 75 mg PO BID 11/20/17 [History] Docusate Sodium 100 mg [Docusate Sodium 100 MG] 200 mg PO BID 02/15/19 [History] Amlodipine Besylate 5 mg [Norvasc 5 mg] 5 mg PO HS 11/04/21 [History] Finasteride 5 mg [Proscar 5 MG] 5 mg PO DAILY 11/04/21 [History] Isosorbide Mononitrate 30 mg [Imdur 30 MG] 30 mg PO DAILY 11/04/21 [History] Memantine HCl [Memantine HCl ER] 28 mg PO DAILY 11/04/21 [History] PANTOPRAZOLE 40 mg Tablet [Protonix 40MG Tablet] 40 mg PO DAILY 11/04/21 [History] Hx Tetanus, Diphtheria Vaccination/Date Given: No Hx Influenza Vaccination/Date Given: Yes Hx Pneumococcal Vaccination/Date Given: Yes Immunizations Up to Date: Yes Travel Risk - International Travel Have you traveled outside of the country in past 3 weeks: No - Coronavirus Screening Are you exhibiting any of the following symptoms?: No Close contact with a COVID-19 positive Pt in past 14-21 Days: No - Vaccine Status Have you recieved a Covid-19 vaccination: No - Review of Systems Constitutional: No Symptoms Eyes: No Symptoms Ears, Nose, & Throat: No Symptoms Respiratory: No Symptoms Cardiac: Chest Pain Abdominal/Gastrointestinal: No Symptoms Genitourinary Symptoms: No Symptoms Musculoskeletal: No Symptoms Skin: No Symptoms Neurological: No Symptoms Psychological: No Symptoms Endocrine: No Symptoms Hematologic/Lymphatic: No Symptoms Immunological/Allergic: No Symptoms All Other Systems: Reviewed and Negative - Past Medical History Pertinent Past Medical History: Yes Neurological History: Alzheimer's Disease, Dementia ENT History: No Pertinent History Cardiac History: High Cholesterol, Hypertension Respiratory History: No Pertinent History Endocrine Medical History: Hypothyroidism Musculoskeletal History: Degenerative Disk Disease GI Medical History: Diverticulitis, GERD, Hernia History: No Pertinent History Psycho-Social History: No Pertinent History Male Reproductive Disorders: No Pertinent History Other Medical History: skin cancer and tremor spouse states has a hiatel hernia and 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 bilateral foot surgery for bone spurs. quadruple bypass in July 2018 - Social History Smoking Status: Former smoker Exposure to second hand smoke: No Drug Use: none Patient Lives Alone: No - Nursing Vital Signs Nursing Vital Signs: Initial Vital Signs Temperature 97.3 F 04/06/22 10:59 Pulse Rate 59 L 04/06/22 10:59 Respiratory Rate 18 04/06/22 10:59 Blood Pressure 169/57 04/06/22 10:59 O2 Sat by Pulse Oximetry 99 04/06/22 10:59 Pain Scale Pain Intensity 0 - Physical Exam General Appearance: no apparent distress, alert, anxiety Eye Exam: PERRL/EOMI, eyes nml inspection Ears, Nose, Throat Exam: normal ENT inspection, moist mucous membranes Neck Exam: normal inspection, non-tender, supple, full range of motion Respiratory Exam: normal breath sounds, chest tenderness, lungs clear, airway intact, No respiratory distress Cardiovascular Exam: regular rate/rhythm, normal heart sounds, normal peripheral pulses Gastrointestinal/Abdomen Exam: soft, normal bowel sounds, No tenderness Rectal Exam: not done Back Exam: normal inspection, normal range of motion, No CVA tenderness, No vertebral tenderness Extremity Exam: normal inspection, normal range of motion, pelvis stable Neurologic Exam: alert, cooperative, nuclear medicine specialist II-XII nml as tested, sensation nml Skin Exam: normal color, warm, dry Lymphatic Exam: No adenopathy SpO2 Interpretation: normal SpO2: 99 O2 Delivery: Room Air - Course Nursing assessment & vital signs reviewed: Yes EKG Interpreted by Me: RATE (59), Sinus Rhythm, Left [place] Deviation, NORMAL QRS, Non-specific ST Changes, Other (There is new borderline left axis deviation and borderline T abnormalities in the inferior leads when compared to the EKG dated 11/04/2021. On that EKG there was evidence of old infarct and patient was in normal sinus rhythm.) Ordered Tests: Active Orders 24 hr Category Date Time Status Clinical Scientist STAT Care 04/06/22 11:04 Active EKG-ER Only STAT Care 04/06/22 11:03 Active IV Insertion STAT Care 04/06/22 11:03 Active Pulse Oximetry (ED) STAT Care 04/06/22 11:03 Active CHEST 1 VIEW (PORTABLE) Stat Exams 04/06/22 11:03 Completed CHEST WITH CONTRAST [CT] Stat Exams 04/06/22 12:33 Completed CBC W DIFF Stat Lab 04/06/22 11:10 Completed CMP Stat Lab 04/06/22 11:10 Completed D-DIMER QUANTITATIVE Stat Lab 04/06/22 11:10 Completed NT PRO BNP Stat Lab 04/06/22 11:10 Completed TROPONIN Q3H Lab 04/06/22 11:10 Completed TROPONIN Q3H Lab 04/06/22 14:15 Ordered TROPONIN Q3H Lab 04/06/22 17:15 Ordered TROPONIN Q3H Lab 04/06/22 20:15 Ordered TROPONIN Q3H Lab 04/06/22 23:15 Ordered UA W/RFX CULTURE Stat Lab 04/06/22 11:25 Completed Medication Summary Discontinued Medications Generic Name Dose Route Start Last Admin Trade Name Freq PRN Reason Stop Dose Admin Aspirin 324 mg 04/06/22 11:03 04/06/22 11:55 Aspirin 81 Mg Tab.Chew PO 04/06/22 11:04 324 mg STAT ONE Administration Sodium Chloride 500 mls @ 500 mls/hr 04/06/22 12:33 04/06/22 13:00 Sodium Chloride 0.9% 500 Ml IV 04/06/22 13:32 500 mls/hr .Q1H ONE Administration Sodium Chloride Confirm 04/06/22 13:00 Sodium Chloride 0.9% 500 Ml Administered 04/06/22 13:01 Dose 500 mls @ ud IV .STK-MED ONE Lab/Rad Data: Laboratory Result Diagrams 04/06/22 11:10 04/06/22 11:10 Laboratory Results 04/06/22 04/06/22 04/06/22 Range/Units 11:25 11:10 11:10 WBC (4.0-10.5) x10^3/uL RBC (4.1-5.6) x10^6/uL Hgb (12.5-18.0) g/dL Hct (42-50) % MCV (78-100) fL MCH (26-32) pg MCHC (32-36) g/dL RDW (11.5-14.0) % Plt Count (150-450) x10^3/uL MPV (7.5-11.0) fL Gran % (36.0-66.0) % Immature Gran % (Auto) (0.00-0.4) % Nucleat RBC Rel Count (0.00-0.1) % Eos # (Auto) (0-0.5) x10^3/uL Immature Gran # (Auto) (0.00-0.03) x10^3u/L Absolute Lymphs (auto) (1.0-4.6) x10^3/uL Absolute Monos (auto) (0.0-1.3) x10^3/uL Absolute Nucleated RBC (0.00-0.01) x10^3u/L Lymphocytes % (24.0-44.0) % Monocytes % (0.0-12.0) % Eosinophils % (0.00-5.0) % Basophils % (0.0-0.4) % Absolute Granulocytes (1.4-6.9) x10^3/uL Basophils # (0-0.4) x10^3/uL D-Dimer 4.72 H* (0.0-0.50) mg/L Sodium (137-145) mmol/L Potassium (3.5-5.1) mmol/L Chloride (98-107) mmol/L Carbon Dioxide (22-30) mmol/L Anion Gap (5-15) MEQ/L BUN (9-20) mg/dL Creatinine (0.66-1.25) mg/dL Estimated GFR ML/MIN Glucose (74-106) mg/dL Calcium (8.4-10.2) mg/dL Total Bilirubin (0.2-1.3) mg/dL AST (17-59) U/L ALT (0-50) U/L Alkaline Phosphatase (38-126) U/L Troponin I < 0.012 (0.000-0.034) ng/mL NT-Pro-B Natriuret Pep (0-1800) pg/mL Serum Total Protein (6.3-8.2) g/dL Albumin (3.5-5.0) g/dL Urinalys Dipstick Clnc MAIN LAB Urine Color YELLOW (YELLOW) Urine Appearance CLEAR (CLEAR) Urine pH 6.5 (5-6) Ur Specific [place] 1.020 (1.005-1.025) POC Urine Protein Conf 30 (Negative) Urine Ketones TRACE (NEGATIVE) Urine Nitrite NEGATIVE (NEGATIVE) Urine Bilirubin NEGATIVE (NEGATIVE) Urine Urobilinogen 0.2 (0-1) mg/dL Urine Leukocytes NEGATIVE (NEGATIVE) Urine WBC (Auto) 3-5 (0-5) /HPF Urine RBC (Auto) NONE (0-2) /HPF U Epithel Cells (Auto) RARE (FEW) /HPF Urine Bacteria (Auto) FEW (NEGATIVE) /HPF Urine RBC NEGATIVE (0-5) Michael/ul Urine Mucus (Auto) SLIGHT (NEGATIVE) /HPF Ur Culture Indicated? NO Urine Glucose NEGATIVE (NEGATIVE) mg/dL 04/06/22 04/06/22 Range/Units 11:10 11:10 WBC 8.4 (4.0-10.5) x10^3/uL RBC 4.03 L (4.1-5.6) x10^6/uL Hgb 12.3 L (12.5-18.0) g/dL Hct 37.8 L (42-50) % MCV 93.8 (78-100) fL MCH 30.5 (26-32) pg MCHC 32.5 (32-36) g/dL RDW 12.4 (11.5-14.0) % Plt Count 183 (150-450) x10^3/uL MPV 10.0 (7.5-11.0) fL Gran % 61.9 (36.0-66.0) % Immature Gran % (Auto) 0.2 (0.00-0.4) % Nucleat RBC Rel Count 0.0 (0.00-0.1) % Eos # (Auto) 0.60 H (0-0.5) x10^3/uL Immature Gran # (Auto) 0.02 (0.00-0.03) x10^3u/L Absolute Lymphs (auto) 1.59 (1.0-4.6) x10^3/uL Absolute Monos (auto) 0.92 (0.0-1.3) x10^3/uL Absolute Nucleated RBC 0.00 (0.00-0.01) x10^3u/L Lymphocytes % 19.0 L (24.0-44.0) % Monocytes % 11.0 (0.0-12.0) % Eosinophils % 7.2 H (0.00-5.0) % Basophils % 0.7 (0.0-0.4) % Absolute Granulocytes 5.16 (1.4-6.9) x10^3/uL Basophils # 0.06 (0-0.4) x10^3/uL D-Dimer (0.0-0.50) mg/L Sodium 139 (137-145) mmol/L Potassium 4.7 (3.5-5.1) mmol/L Chloride 104 (98-107) mmol/L Carbon Dioxide 27 (22-30) mmol/L Anion Gap 12.0 (5-15) MEQ/L BUN 23 H (9-20) mg/dL Creatinine 1.25 (0.66-1.25) mg/dL Estimated GFR 59.4 ML/MIN Glucose 98 (74-106) mg/dL Calcium 9.5 (8.4-10.2) mg/dL Total Bilirubin 0.60 (0.2-1.3) mg/dL AST 38 (17-59) U/L ALT 20 (0-50) U/L Alkaline Phosphatase 86 (38-126) U/L Troponin I (0.000-0.034) ng/mL NT-Pro-B Natriuret Pep 221 (0-1800) pg/mL Serum Total Protein 7.1 (6.3-8.2) g/dL Albumin 4.0 (3.5-5.0) g/dL Urinalys Dipstick Clnc Urine Color (YELLOW) Urine Appearance (CLEAR) Urine pH (5-6) Ur Specific [place] (1.005-1.025) POC Urine Protein Conf (Negative) Urine Ketones (NEGATIVE) Urine Nitrite (NEGATIVE) Urine Bilirubin (NEGATIVE) Urine Urobilinogen (0-1) mg/dL Urine Leukocytes (NEGATIVE) Urine WBC (Auto) (0-5) /HPF Urine RBC (Auto) (0-2) /HPF U Epithel Cells (Auto) (FEW) /HPF Urine Bacteria (Auto) (NEGATIVE) /HPF Urine RBC (0-5) Michael/ul Urine Mucus (Auto) (NEGATIVE) /HPF Ur Culture Indicated? Urine Glucose (NEGATIVE) mg/dL - Progress Progress: improved, re-examined Air Movement: good Progress Note: 04/06/22 11:50 Chest x-ray shows no acute cardiopulmonary process. 04/06/22 13:44 CTA of chest shows no acute cardiopulmonary process. Specifically, there is no evidence of pulmonary embolus. Blood Culture(s) Obtained: No Antibiotics given: No Counseled pt/family regarding: lab results, diagnosis, need for follow-up, rad results - Departure Departure Disposition: Home Clinical Impression: Non-cardiac chest pain Condition: Stable Critical Care Time: No Referrals: KARYN MARC MD [Primary Care Provider] - Follow up/PCP as directed Additional Instructions: Continue your medication as prescribed. Follow-up with your primary care physician for further management.
--- NOTE | 2022-04-06 11:44 | XRAY ---
Indication: Chest pain. Comparison: November 04, 2021. Portable chest unchanged again underinflated with minimal lingula subsegmental atelectasis/scarring. Heart borderline enlarged again with CABG. Bony thorax intact again with osteopenia and degenerative changes. No new/acute findings.
[2022-04-06 12:01] LABS: Bacteria FEW /HPF (NEGATIVE); Epithelial Cells RARE /HPF (FEW); Mucus SLIGHT /HPF (NEGATIVE)
[2022-04-06 12:03] LABS: Appearance CLEAR (CLEAR); Bilirubin NEGATIVE (NEGATIVE); Glucose NEGATIVE (NEGATIVE); Ketones TRACE (NEGATIVE); Ph 6.5 (5-6); Protein,Urine Dip 30 (Negative); RBC NEGATIVE Ery/ul (0-5)
[2022-04-06 12:04] LABS: Dipstick done @ ? MAIN LAB; Nitrite NEGATIVE (NEGATIVE); Urine Cultured Indicated? NO; Urobilinogen 0.2 mg/dL (0-1)
[2022-04-06 12:10] LABS: BILIRUBIN,TOTAL 0.6 mg/dL (0.2-1.3); Calcium 9.5 mg/dL (8.4-10.2); Creatinine 1 1.25 mg/dL (0.66-1.25); EST GLOMERULAR FILTRATION RATE 59.4 ML/MIN; Potassium 4.7 mmol/L (3.5-5.1); Total Protein 7.1 g/dL (6.3-8.2)
[2022-04-06] MEDS ORDERED: Sodium Chloride 0.9% 500 ML 500 ML IV ONE ×2 (12:33→13:00)
[2022-04-06 13:07] VITALS: BP 122/68
--- NOTE | 2022-04-06 13:16 | XRAY ---
Indication: Chest pain. Elevated d-dimer. Multiple contiguous axial images obtained through the chest using 100 cc Isovue 370 contrast and PE protocol. Comparison: April 04, 2015. There is good opacification of the pulmonary arteries to include the lobar and segmental branches. However mild respiration artifact limits evaluation of the more distal segmental branches. No pulmonary embolus. Heart remains borderline enlarged with interval CABG surgery. Aorta is minimally arteriosclerotic without aneurysm/dissection. No pathologic mediastinal/hilar lymphadenopathy. Lungs again demonstrates minimal left lower lobe subsegmental atelectasis/scarring, minimal posterior right base calcified pleural plaquing, and right hemidiaphragm elevation. No suspicious pulmonary mass, infiltrate, or effusion. Bony thorax intact again with mild osteopenia and degenerative changes throughout the spine. New sternotomy wires. Limited upper abdomen demonstrates a few bilateralt renal exophytic cysts largest 4 cm on right and not previously imaged. Interval cholecystectomy. Partially visualized 4.7 x 6.8 cm AAA, previously 3.8 x 4.7 cm on Jun 01, 2016. Impression: 1. Pulmonary embolus evaluation limited by respiration artifact. No obvious pulmonary embolus. 2. Again borderline cardiomegaly, left lower lobe subsegmental atelectasis/scarring, right base calcified pleural plaquing, and right hemidiaphragm elevation. 3. No acute cardiopulmonary abnormalities. 4. Partial visualized enlarging AAA. 5. Incidental bilateral renal cysts.
[2022-04-06 13:45] VITALS: O2SAT 99
[2022-04-06 14:08] VITALS: PULSE 60
== END 2022-04-06 14:11 | disposition home or self-care (01) ==
LOC: ED 10:57
DX: R07.89 Other chest pain (principal); G30.9 Alzheimer's disease, unspecified; F02.80 Dementia in other diseases classified elsewhere, unspecified severity, without behavioral disturbance, psychotic disturbance, mood disturbance, and anxiety; E78.5 Hyperlipidemia, unspecified; I10 Essential (primary) hypertension; Z79.899 Other long term (current) drug therapy; Z28.310 Unvaccinated for COVID-19
CPT/HCPCS: 36000; 36415; 71045; 71260; 80053; 81015; 83880; 84484; 85025; 85379; 93005; 93041; 94760; 99284; A9270-GY